=== PATIENT | female | born 1965 | race Caucasian/White ===

== ENCOUNTER → 2017-03-07 13:51 | Outpatient (CLI) | payer MEDICARE, MEDICAID, SELFPAY | PROVIDERS: Family Provider Family Medicine; PCP Family Medicine; Visit Provider Internal Medicine Critical Care Medicine | DX: G47.10 Hypersomnia, unspecified (principal) | CPT/HCPCS: 95806 ==

== ENCOUNTER 2017-03-17 11:20 | Day surgery (SDC) | payer MEDICARE, MEDICAID, SELFPAY ==
--- NOTE | 2017-03-17 | IMM_PTH ---
PATIENT: RAMON LESLIE LOC: EN U#:[id number] AGE/SX: 52/F ROOM: RE03/17/[address]: Dr. Rudi Jaquez MD : 1965 BED: DIS: 03/17/2017 SPEC #: [id number] RECD: 03/19/17 10:16 STATUS: MICHELLE REQ #: [id number] KARLA: 03/17/17 00:[address]: Rudi Jaquez DEPT: IMMUNOHISTOCHEMISTRY RECD BY: Belem Beasley ENTERED: 03/19/17 10:17 SP TYPE: IMMUNO OTHR DR: Dr. Remi Vreas MD Tissues: Stomach, NOS Procedures: H Pylori (initial) PHYSICIAN & INSTITUTION [place] [id number] SPECIMEN INFORMATION: Tissue Source: Antral biopsy Clinical Info: Epigastric pain Specimen Number: [id number] CPT code: 89856 METHODOLOGY: Deparaffinized sections of prefer/formalin-fixed tissue or PAP/DQ stained slides are incubated with monoclonal/polyclonal antibodies/oligonucleotide probes. Localization is made via biotin free immunoperoxidase method. Appropriate controls are performed and reacted as expected. Results on target cell population are indicated in the following table: RESULTS: ANTIBODY / CLONE RESULT H Pylori (polyclonal) negative These tests were developed and their performance characteristics determined by [facility]. They may not have been cleared or approved by the U.S. Food and Drug Administration. The FDA has determined that such clearance or approval is not necessary. INTERPRETATION: Antral biopsy: Negative for Helicobacter pylori organisms. LACY:lachelle 03/19/17
--- NOTE | 2017-03-17 | EGD_PTH ---
PATIENT: RAMON LESLIE LOC: [place] U#:[id number] AGE/SX: 52/F ROOM: RE03/17/[address]: Dr. Rudi Jaquez MD : 1965 BED: DIS: 03/17/2017 SPEC #: [id number] RECD: 03/17/17 15:18 STATUS: MICHELLE YOLIS #: [id number] KARLA: 03/17/17 00:[address]: Rudi Jaquez DEPT: SURGICAL PATHOLOGY RECD BY: Virgilio Villa ENTERED: 03/18/17 09:37 SP TYPE: EGD BIOPSY EUGENIE DR: Dr. Remi Veras MD Tissues: Gastric mucous membrane Procedures: Surgery Specimen Level IV Comments: @ Specimen number changed from [id number] to [id number] @ on 03/18/17 at 1404 by NENITA. HEADER OPERATION: EGD PRE-OP DIAGNOSIS: Epigastric pain TISSUE SUBMITTED: Antral biopsy MICROSCOPIC DIAGNOSIS Antral biopsy: Mild gastritis. LACY:lachelle 03/19/17 COMMENT The results of immunohistochemistry for Helicobacter pylori will be reported separately ([id number]). MICROSCOPIC DESCRIPTION Slides are reviewed. The specimen shows fragments of gastric mucosa with chronic inflammatory cell infiltrates in the lamina propria consisting of lymphocytes and plasma cells, consistent with mild chronic gastritis. GROSS DESCRIPTION Received in fixative is one container labeled with the patient's name and designated antral biopsy. The specimen consists of one irregular fragment of light newton soft tissue that measures 0.3 x 0.3 x 0.1 cm. The specimen is totally submitted in one cassette. / LACY:lachelle 03/18/17 TC:3 CPT: 69017
--- NOTE | 2017-03-17 07:38 | HP.PCM_ITS ---
History and Physical Date of Admission: 03/17/17 HISTORY AND PHYSICAL ? Stefanie Noriega 1965 ? REFERRING PHYSICIAN: ~Remi Sherman MD ? CHIEF COMPLAINT: ~~Consult (Consult RUQ incision hernia) ? HPI: The patient is a 52 year old female referred for a questionable recurrent upper abdominal incisional hernia and a known history of peptic ulcer disease.~~ Stefanie notes no current colon complaints. ? The patient ~notes the following upper complaints: ~~Stefanie notes abdominal pain in the upper abdomen which occurs soon after eating foods. ~She also notes that if she misses her Prilosec. ~She will get very severe upper abdominal pain. ~I performed upper and lower endoscopy in 2013 on 2 occasions. ~At both times. ~ The patient was found to have duodenal and gastric ulcerations. ~She was started on proton pump inhibitors and advised to decrease tobacco use. ~ Unfortunately, the patient is still smoking. ? The patient also has a history of multiple surgical procedures. ~She has Jose Manuel- Danlos syndrome. ~I performed an urgent incisional hernia repair for an upper midline incisional hernia with transverse colon located within the hernia in March 11, 2013 ~with an 11 x 14 mesh repair ~- I believe a ventrio~mesh. . ~The patient is concerned that she has had recurrence over the superior aspect of the repair site in the right upper quadrant area. ~Pain has been persistent in that area for the past year. ~She was initially evaluated for possible biliary colic. ~She underwent a gallbladder ultrasound which demonstrated no gallbladder abnormalities. ~She has a known history of many liver cysts. ~These appear stable between ultrasound and CAT scan. ? Stefanie has ~undergone prior endoscopy. ~These were performed 2 times in 2013 ? The patient is being seen by me today at the request of Dr. Remi Veras MD~ for my opinion and advice regarding upper abdominal pain and possible recurrent incisional hernia. ? ? PAST?MEDICAL?HISTORY PAST MEDICAL HISTORY Diagnosis Date ? Angina at rest (HCC) ? ? Anginal pain (HCC) 02/15/2013 ? Depression ? ? Jose Manuel-Danlos syndrome ? ? HTN (hypertension) ? ? Hyperlipidemia ? ? Migraine ? ? PAD (peripheral artery disease) (HCC) ? ? ? PAST?SURGICAL?HISTORY PAST SURGICAL HISTORY Procedure Laterality Date ? SECTION HX ? 2 ? COLONOSCOP W/ OR W/O [facility] SPEC ? 5/13/14 ? normal colonoscopy - 10 year follow up ? EGD W/O [facility] SPECIMEN W/BX ? 04/23/13 ? duodenal and gastric ulcers ? EGD W/O [facility] SPECIMEN W/BX ? 06/22/13 ? duodenal and gastric ulcers ? PAST SURGICAL HISTORY OF ? ? ? 13 Hernia repairs ? PAST SURGICAL HISTORY OF Right 2009 ? ORIF right foot ? PAST SURGICAL HISTORY OF Right 02/28/2016 ? right SHAREE revision ? AL ANESTH,TOTAL HIP ARTHROPLASTY ? 01/05/2011 ? right ? REPAIR RECURR INCIS HERNIA,BOBBI ? 03/11/13 ? incarcerated transverse colon - Ventralex ST 11X14 ? TARSAL TUNNEL RELEASE ? ? ? right ankle ? ? CURRENT?MEDICATIONS ? Current Outpatient Prescriptions: metoprolol succinate ER (TOPROL XL) 25 mg 24 hr tablet Take 1 tablet by mouth once daily. clonazePAM (KLONOPIN) 0.5 mg tablet ? PARoxetine (PAXIL) 40 mg tablet Take 40 mg by mouth once daily. atorvastatin (LIPITOR) 40 mg tablet Take 1 tablet by mouth once daily. VENTOLIN HFA 90 mcg/actuation inhaler ? lisinopril-hydrochlorothiazide (PRINZIDE,ZESTORETIC) 10-12.5 mg per tablet ? omeprazole 20 mg capsule Take 2 capsules by mouth once daily. cyclobenzaprine (FLEXERIL) 10 mg tablet Take 10 mg by mouth three times daily as needed. diltiazem CD (CARDIZEM CD) 120 mg 24 hr capsule Take 1 capsule by mouth once daily. amitriptyline 100 mg tablet Take 100 mg by mouth daily at bedtime. enteric contrast (radiology procedure) Take 1 Each by mouth one time only for [address] ABD/PEL WO Routine order Administer, As Directed One Time Only, via Oral, Rectal, both Oral and Rectal, Enteric Tube, Stoma or Indwelling Catheter, Enteric Contrast as designated per enteric contrast guidelines HYDROcodone-acetaminophen (NORCO) 5-325 mg per tablet Take 1-2 tablets by mouth every 4 hours as needed for Pain. (Patient not taking : Reported on 08/29/2016) docusate sodium (COLACE) 100 mg capsule Take 1 capsule by mouth twice daily. ascorbic acid, vitamin C, (VITAMIN C) 500 mg tablet Take 1 tablet by mouth twice daily with meals. FLUoxetine HCl (PROZAC) 40 mg capsule ? ? No current facility-administered medications for this visit. ? ALLERGIES: Stefanie-Phenal; Gabapentin; Phenobarbital ? PERSONAL HISTORY: SOCIAL?HISTORY Social History ~~Marital status: ~~~~~~~~~~~Spouse name: ~~~~~~~~~~~~~~~~~~ ~~Years of education: ~~~~~~~~~~~~~~~~Number of children: ~~~~~~~~~~ ? Social History Main Topics ~~Smoking status: Current Every Day Smoker ~~~~~~~~~~~~~~~~~~~~~~~~~~~~~~~~~~~~~ ~~~~~~~~ ~~~~~Packs/day: 0.50 ~~~~~Years: 35.00 ~~ ~~~~~Types: Cigarettes ~~Smokeless status: Never Used ~~~~~~~~~~~~~~~~~~~ ~~Comment: 1o cigartettes daily ~~Alcohol use: Yes ~~~~~~~~ ~~~~~Comment: rare ~~Drug use: No ~~~~~~~~~ ? FAMILY HISTORY: FAMILY?HISTORY FAMILY HISTORY Problem Relation Age of Onset ? Stroke Mother ? ? Diabetes Father ? ? REVIEW OF SYMPTOMS: ~~The review of systems data was entered by the nurse and reviewed by me ? REVIEW OF SYSTEMS: ?General:???The patient NOTES?fatigue, denies?weight loss, denies?weight gain, denies?feeling hot, and denies?feelings of cold. ?Eyes: ?The patient denies?glaucoma, denies?eye injury/surgery, wears? glasses or contacts. ?Ear/Nose/Throat: ?The patient denies?allergies, denies?hayfever, denies? ear infections, and denies?bloody noses. ?Cardiovascular: ?The patient NOTES?chest pain, denies?heart disease, NOTES? high blood pressure,denies?cardiac stent, denies?prior heart attack, denies? irregular heart beat, NOTES?high cholesterol, ?NOTES?poor circulation, denies? heart failure, NOTES?cardiac issues, NOTES?claudication, denies?cold feet, denies?peripheral arterial stent. ?Respiratory: ?The patient denies?tuberculosis, denies?pneumonia, NOTES? frequent cough, denies?pulmonary embolism, NOTES?shortness of breath, and denies ?coughing up blood, NOTES other lung problems. ?Gastrointestinal: ?The patient denies?difficulty swallowing, denies?acid reflux, NOTES?ulcers, NOTES?vomiting, denies?jaundice/hepatitis, denies? gallbladder problems, denies?black or tarry stools, denies?hemorrhoids, denies? bleeding from rectum, denies?diverticulitis, denies?constipation, NOTES?diarrhea , denies?loss of stool control, and NOTES?hernias. ?Kidney/Bladder: ?The patient denies?kidney stones, denies?urine infections , and denies?bloody urine, NOTES cystolic kidneys. ?Skin: ?The patient denies?a history of skin cancer, denies?bleeding/ changing moles, and denies?a history of skin rash. ?Neurologic: ?The patient denies?a history of epilepsy/convulsions, NOTES? headaches, denies?head/spinal injuries, and denies?stroke/TIA. ?Psychiatric: ?The patient denies?psychiatric medications, NOTES?depression , and denies?voices, denies?substance abuse. ?Endocrine: ?The patient denies?thyroid disorders, denies?diabetes, and denies?hormonal problems. ?Hematologic: ?The patient NOTES?a history of bruising, NOTES?bleeding, and denies?anemia, denies?blood clots. ?Infections: ?The patient NOTES?a history of measles and mumps, denies? rheumatic fever, and denies?sexually transmitted diseases. ?Musculoskeletal: ?The patient NOTES?back pain/injury, NOTES?back problems, NOTES?sciatica, NOTES?knee/foot trouble, NOTES?arthritis, or denies?gout. ? When was patient's last Mammogram screening? N/A ?? ?Last Colonoscopy: ?06/2013? ?? PHYSICAL EXAMINATION: ? General: ~The patient is 52 year old female, well nourished, well hydrated in no acute distress. ~The patient is oriented to time, place, and person. ? VITALS: There were no vitals taken for this visit.~There is no height or weight on file to calculate BMI.~ ? HEENT: ~Normal cephalic, ataumatic, pupils are equally round, sclera are anicteric, mucous membranes are moist, oropharynx is clear. ~Neck has no masses , asymmetry or lymphadenopathy. ~Thyroid is unremarkable. ? Respiratory: ~Distant to~auscultation with few wheezes. ~Normal respiratory excursion and pattern. ? Cardiac: ~Examination is regular rate and rhythm. ? Abdominal exam: ~Soft, tender in the epigastrium and right upper quadrant area. ~There is suggestion of an asymmetry in the right upper quadrant, ~with no palpable masses. ~No hepatosplenomegaly. ~No~obviously~palpable hernias, but asymmetry in the right upper quadrant suggested further postsurgical changes, or a possible recurrent hernia. ? Rectal exam: exam deferred ? Extremities: ~no clubbing, cyanosis or edema. ~No adenopathy. ? Other: ? LABORATORY VALUES: As Noted ? RADIOLOGIC STUDIES: ~As Noted ? Assessment ~ IMPRESSION: Questionable recurrent incisional hernia, history of peptic ulcer disease, epigastric symptoms, clinically worsening COPD, Jose Manuel-Danlos syndrome ? PLAN: ~I plan to perform upper~endoscopy. ~~We discussed the risks and benefits of the planned endoscopy. ~I have informed the patient that complications can occur including failure to complete the endoscopy and perforation. ~The patient had the opportunity to ask questions concerning the planned endoscopy. ~My staff has also explained the procedure to the patient in understandable terms and has given the patient printed material concerning the procedure. ~The patient freely consents to surgery. ? ? I plan to obtain a CT scan of the abdomen and pelvis for to assess for recurrent herniation. ? The patient is followed by Dr. Wooten-pulmonary. ~The last office note recommended pulmonary function tests area did the patient has not had these completed. ~I will have my security sme try to arrange these pulmonary function tests. ? ? Diagnoses: (R10.13) Epigastric pain ~(primary encounter diagnosis) (K43.2) Incisional hernia, without obstruction or gangrene ? A letter was sent to Dr. Remi Veras MD~indicating the above finding for this patient. ?? Return to Clinic: The patient is instructed to follow-up with me after the testing has been completed. ? Rudi Jaquez MD
[2017-03-17 12:14] VITALS: BP 116/65; PULSE 65; RESP 18; TEMP 37.1; O2SAT 97; BMI 29.9
[2017-03-17 14:05] VITALS: BP 116/65; BP 99/39; PULSE 72; RESP 16; TEMP 36.4; O2SAT 97
--- NOTE | 2017-03-17 14:07 | PCM.OPRPT ---
Report of Operation Date of Procedure: 03/17/17 Pre-Operative Diagnosis: EPIGASTRIC PAIN Surgery/Procedure Performed:: GASTRIC ULCERS, GASTRITIS Description of Surgical Findings:: EGD WITH BIOPSY hat brim curler: None Type of Anesthesia:: MAC Anesthesiologist: Juan Carlos Espinal ASA3 Specimen's removed: GASTRIC FOR H PYLORI AND PATH Description of Procedure: The patient was brought to the endoscopy suite. Sign in was performed verifying patient, site, planned procedure, critical nursing information, the patient was monitored with cardiac, pulse oximetric, and blood pressure monitoring devices. Monitored anesthetic care was provided for sedation. Following IV sedation and after the oropharynx was sprayed with Cetacaine spray, a video gastroscope was inserted in the oropharynx and advanced down the esophagus without difficulty. The scope was advanced through the stomach, through the pylorus through the duodenum to the proximal jejunum. the duodenum and jejunum appeared unremarkable. As the scope withdrawn. There were 2 ulcers present in the prepyloric area. Both had white bases. There were no signs of recent bleeding. There was also some mild gastritis in the more proximal antrum. Biopsies were obtained for H. pylori and pathology. The esophagus was unremarkable. The patient tolerated the procedure well and was brought to recovery in stable condition
[2017-03-17 14:10] VITALS: BP 116/65; BP 94/53; PULSE 67; RESP 16; O2SAT 96
[2017-03-17 14:15] VITALS: BP 101/59; BP 116/65; PULSE 70; RESP 16; O2SAT 94
[2017-03-17 14:26] VITALS: BP 109/47; BP 116/65; PULSE 68; RESP 16; TEMP 36.5; O2SAT 92
[2017-03-17 14:52] VITALS: BP 116/65
== END 2017-03-17 14:53 | disposition home or self-care (01) ==
LOC: EN 11:20 → ACINP 11:22 → AC 13:11
PROVIDERS: Family Provider Family Medicine; PCP Family Medicine; Visit Provider Surgery
PROC: 0DJ08ZZ Inspection of Upper Intestinal Tract, Via Natural or Artificial Opening Endoscopic (ICD-10-PCS; CPT 43235; principal; 2017-03-17 13:25)
DX: K29.70 Gastritis, unspecified, without bleeding (principal); K25.9 Gastric ulcer, unspecified as acute or chronic, without hemorrhage or perforation; K43.2 Incisional hernia without obstruction or gangrene; Q79.6 Ehlers-Danlos syndromes; I10 Essential (primary) hypertension; J44.9 Chronic obstructive pulmonary disease, unspecified; K21.9 Gastro-esophageal reflux disease without esophagitis; F17.200 Nicotine dependence, unspecified, uncomplicated; Z87.11 Personal history of peptic ulcer disease
CPT/HCPCS: 43239; 88305; 88342; J7120

== ENCOUNTER → 2017-04-25 22:44 | Outpatient (CLI) | payer MEDICARE, MEDICAID, SELFPAY | PROVIDERS: Family Provider Family Medicine; PCP Family Medicine; Visit Provider Nurse Practitioner Acute Care | DX: G47.33 Obstructive sleep apnea (adult) (pediatric) (principal) | CPT/HCPCS: 95811 ==

== ENCOUNTER → 2017-04-29 07:46 | Outpatient (CLI) | payer MEDICARE, MEDICAID, SELFPAY ==
--- NOTE | 2017-04-29 09:50 | NEURO ---
NCS and/or EMG Patient Report Ordering Doctor: Darryl Muhammad DATE OF SERVICE: 04/29/17 This is a bilateral lower extremity nerve conduction study and a right lower extremity EMG performed on this 52-year-old female with a history of COPD on home oxygen as well as Jose Manuel-Danlos syndrome, right hip replacement and right ankle reconstructive surgery. For the past 5 years she has had intermittent pins and needles in her right leg happening sporadically without trigger regardless of position. She says her left leg is normal. On examination she has mild proprioceptive loss in her bilateral lower extremities at the toes. She also has pain with flexion at the right hip but this does not duplicate the above described pain. Bilateral lower extremity sensory and motor nerve conduction studies along with F waves and H reflexes are performed. The sural sensory distal latencies and amplitudes are normal. The common peroneal distal latencies, amplitudes and conduction velocities are normal. The tibial motor distal latencies amplitudes and conduction velocities are normal. As noted however that there is asymmetry with respect to amplitudes being somewhat lower in the right tibial motor nerve and the right common peroneal motor nerves. The tibial and common peroneal F waves are mildly prolonged compared to the F waves on the left. H reflex responses are intact. Right lower extremity needle electromyography was performed. Muscles evaluated included the extensor digitorum brevis, abductor hallucis, anterior tibialis, medial gastrocnemius, vastus lateralis, and vastus medialis muscles. All muscles demonstrated normal insertional activity with absence of pathologic spontaneous activity. Motor unit potential recruitment pattern and amplitude was normal with the exception of the vastus lateralis and vastus medialis which did demonstrate large motor units. Impression this is an abnormal electrophysiologic study of the lower extremities consistent with mild chronic L4 radiculopathy, the patient likely has a superimposed mild neuropathy and pain contributed to by her chronic joint issues as well.
== END ==
PROVIDERS: Family Provider Family Medicine; PCP Family Medicine; Visit Provider Psychiatry & Neurology Neurology
DX: G62.9 Polyneuropathy, unspecified (principal); M54.16 Radiculopathy, lumbar region; R20.0 Anesthesia of skin; R20.2 Paresthesia of skin
CPT/HCPCS: 95886; 95910

== ENCOUNTER → 2017-09-02 11:47 | Outpatient (CLI) | payer MEDICARE, MEDICAID, SELFPAY ==
--- NOTE | 2017-09-03 15:01 | PFTCOMP ---
COMPLETE PULMONARY FUNCTION TEST INTERPRETATION Brief HPI: Patient is a 52 year old female, currently under the care of Noelle Mcdonald, who presents to [facility] for complete pulmonary function tests secondary to diagnosis of COPD. Respiratory therapist reports good effort and reproducible results. Interpretation: Forced expiration spirometry shows a moderately-severe large airways obstructive ventilatory defect with an FEV1 of 55% predicted. There is no significant bronchodilator response by ATS criteria. Spirograms are of good quality and plateau slowly, indicating slowly emptying areas of the lungs. The respiratory flow volume loop shows decreased expiratory flow rates at all lung volumes consistent with airway obstruction. Lung volumes by body plethysmography show a normal total lung capacity at 4.43 L, 98% predicted. FRC and RV are elevated out of proportion. Lung volume measurements are consistent with air-trapping. Diffusion capacity by carbon monoxide is decreased at 34% predicted. The airway resistance is normal. Compared to previous pulmonary function tests from 02/25/17, there has been a significant reduction in DLCO. Impression: Irreversible moderately severe large airways obstructive ventilatory defect with a symmetric reduction diffusing capacity consistent with patient's diagnosis of COPD. There has been worsening compared to previous study.
--- NOTE | 2017-09-03 15:05 | PFTCOMP_ITS ---
COMPLETE PULMONARY FUNCTION TEST INTERPRETATION Brief HPI: Patient is a 52 year old female, currently under the care of Noelle Mcdonald, who presents to [facility] for complete pulmonary function tests secondary to diagnosis of COPD. Respiratory therapist reports good effort and reproducible results. Interpretation: Forced expiration spirometry shows a moderately-severe large airways obstructive ventilatory defect with an FEV1 of 55% predicted. There is no significant bronchodilator response by ATS criteria. Spirograms are of good quality and plateau slowly, indicating slowly emptying areas of the lungs. The respiratory flow volume loop shows decreased expiratory flow rates at all lung volumes consistent with airway obstruction. Lung volumes by body plethysmography show a normal total lung capacity at 4.43 L , 98% predicted. FRC and RV are elevated out of proportion. Lung volume measurements are consistent with air-trapping. Diffusion capacity by carbon monoxide is decreased at 34% predicted. The airway resistance is normal. Compared to previous pulmonary function tests from 02/25/17, there has been a significant reduction in DLCO. Impression: Irreversible moderately severe large airways obstructive ventilatory defect with a symmetric reduction diffusing capacity consistent with patient's diagnosis of COPD. There has been worsening compared to previous study.
== END ==
PROVIDERS: Family Provider Family Medicine; PCP Family Medicine; Visit Provider Nurse Practitioner Acute Care
DX: J44.9 Chronic obstructive pulmonary disease, unspecified (principal)
CPT/HCPCS: 94060; 94726; 94729

== ENCOUNTER → 2017-09-03 11:06 | Outpatient (CLI) | payer MEDICARE, MEDICAID, SELFPAY ==
[2017-09-03 11:30] VITALS: PULSE 63; PULSE 65; PULSE 74; PULSE 79; PULSE 80; PULSE 83; O2SAT 93; O2SAT 94; O2SAT 95; O2SAT 96
--- NOTE | 2017-09-04 06:13 | WT_ITS ---
PSN 6 Minute Walk Test - 6 Minute Walk Test 6 Minute Walk Test: 6 Minute Walk Test PSN:6-Minute Walk Test Start: 09/03/17 11: 30 Freq: Status: Active Protocol: RESP.6MINW Document 09/03/17 11:30 [place] (Rec: 09/03/17 11:32 FABIENON [id number]) 6 Minute Walk Test Date Performed 09/03/17 Time Performed 11:15 Height 5 ft 2 in Weight: 74.843 kg Weight in Pounds 165.[address]: Bobby Wooten Assistive device used: Cane Pre-test Oxygen Delivery Method Room Air Pulse Ox (%) 95 Pulse Rate (60-100 beats/min) 63 Dyspnea Marimar Scale (0-10) 0 Exertion Marimar Scale (6-20) 6 1st minute Oxygen Delivery Method Room Air Pulse Ox (%) 93 Pulse Rate (60-100 beats/min) 74 2nd minute Oxygen Delivery Method Room Air Pulse Ox (%) 93 Pulse Rate (60-100 beats/min) 79 3rd minute Oxygen Delivery Method Room Air Pulse Ox (%) 93 Pulse Rate (60-100 beats/min) 79 4th minute Oxygen Delivery Method Room Air Pulse Ox (%) 95 Pulse Rate (60-100 beats/min) 80 5th minute Oxygen Delivery Method Room Air Pulse Ox (%) 95 Pulse Rate (60-100 beats/min) 80 6th minute Oxygen Delivery Method Room Air Pulse Ox (%) 94 Pulse Rate (60-100 beats/min) 83 Dyspnea Marimar Scale (0-10) 4 Exertion Marimar Scale (6-20) 14 Post-test Oxygen Delivery Method Room Air Pulse Ox (%) 96 Pulse Rate (60-100 beats/min) 65 Full Laps Walked 12 Partial Lap, Number of Tiles Walked 15 Total Distance Walked (ft) 723 - Interpretation Interpretation: Patient was able to ambulate 723 feet over the course of 6 minutes on room air with the assistance of a cane and experienced no significant tachycardia or desaturation. These findings are consistent with a musculoskeletal limitation exercise tolerance. - Recommendations Recommendations: No supplemental oxygen is indicated with exertion according to this testing.
== END ==
PROVIDERS: Family Provider Family Medicine; PCP Family Medicine; Visit Provider Nurse Practitioner Acute Care
DX: J44.9 Chronic obstructive pulmonary disease, unspecified (principal)
CPT/HCPCS: 94618

== ENCOUNTER 2018-03-11 11:06 | Emergency (ER) | payer MEDICARE, MEDICAID, SELFPAY ==
[2018-03-11 11:06] VITALS: BMI 29.9
[2018-03-11 11:07] VITALS: BP 120/71; PULSE 65; RESP 16; TEMP 36.3; O2SAT 96; BMI 32.3
--- NOTE | 2018-03-11 11:25 | RAD_ITS ---
STUDY: X-RAY - THORACIC SPINE REASON FOR EXAM: Female, 53 years old. Pain TECHNIQUE: 3 view(s) of the thoracic spine were obtained. COMPARISON: None. FINDINGS: Normal kyphosis of the thoracic spine. There is no substantial scoliosis. Normal thoracic vertebrae and endplates. Normal disc space heights. The soft tissue structures are unremarkable. RAD/Thoracic Spine 3 Views IMPRESSION: Normal x-ray examination of the thoracic spine. Electronically Signed: Mann Olivares MD at 12:21 EST Tel , Service support ,
--- NOTE | 2018-03-11 11:25 | RAD_ITS ---
STUDY: X-RAY - CERVICAL SPINE REASON FOR EXAM: Female, 53 years old. Pain TECHNIQUE: 3 view(s) of the cervical spine were obtained. COMPARISON: None FINDINGS: Normal anterior atlantoaxial articulation. Normal odontoid process. Normal cervical lordosis. Normal vertebral bodies and endplates. Normal disc space heights. Normal visualized intervertebral neuroforamina. The soft tissue structures are unremarkable. RAD/Cerv Spine 2 or 3 Views IMPRESSION: Normal x-ray examination of the visualized cervical spine. Electronically Signed: Mann Olivares MD at 12:16 EST Tel , Service support ,
[2018-03-11] MEDS: HYDROcodone Bitartrate/Apap 5/325 Tablet PO (11:43)
--- NOTE | 2018-03-11 12:33 | ED.VISSUMM ---
- ER Visit Summary Date of Service: 03/11/18 Chief Complaint: Back pain History of Present Illness: The patient is a 53 F with back pain that started today. Patient was moving and extend her back. She felt a pop in her lower neck and upper back. She says that she has pain to the area that radiates down her entire back and down her right leg. No other associated symptoms. She has had pain in the past like this. History of Ehler Danlos syndrome. No history of back surgery. No fevers. No weakness or numbness. Physical Examination: Afebrile and vital signs unremarkable. Alert and oriented. No acute distress. HEENT exam unremarkable. Neck is tender in the lower C-spine and upper T-spine at the midline. Upper extremities atraumatic. Strength and sensation normal. Skin appears normal. Lower extremities unremarkable. Test Results: X-rays of the C-spine and T-spine were unremarkable. Emergency Department Course and Treatment: Patient was treated with [place] and Flexeril. She has been taking anti-inflammatories at home. She will continue anti-inflammatories. She was given a short course of [place] as well as Flexeril. Follow-up with primary care for recheck. Treatment Plan: As above Disposition: Discharge Impression: 1. Cervical strain This note was generated with [employer] dictation software. It may contain incorrect words, spelling, and punctuation that were not noted in review of the chart prior to signing ED Disposition - Plan for ED Patient: Chief Complaint: Back Referrals: Remi Veras MD [Primary Care Provider] -
--- NOTE | 2018-03-11 12:36 | ED.DCSUM_ITS ---
- ER Visit Summary Date of Service: 03/11/18 Chief Complaint: Back pain History of Present Illness: The patient is a 53 F with back pain that started today. Patient was moving and extend her back. She felt a pop in her lower neck and upper back. She says that she has pain to the area that radiates down her entire back and down her right leg. No other associated symptoms. She has had pain in the past like this. History of Ehler Danlos syndrome. No history of back surgery. No fevers. No weakness or numbness. Physical Examination: Afebrile and vital signs unremarkable. Alert and oriented. No acute distress. HEENT exam unremarkable. Neck is tender in the lower C-spine and upper T-spine at the midline. Upper extremities atraumatic. Strength and sensation normal. Skin appears normal. Lower extremities unremarkable. Test Results: X-rays of the C-spine and T-spine were unremarkable. Emergency Department Course and Treatment: Patient was treated with [place] and Flexeril. She has been taking anti-inflammatories at home. She will continue anti-inflammatories. She was given a short course of [place] as well as Flexeril. Follow-up with primary care for recheck. Treatment Plan: As above Disposition: Discharge Impression: 1. Cervical strain This note was generated with [employer] dictation software. It may contain incorrect words, spelling, and punctuation that were not noted in review of the chart prior to signing ED Disposition - Plan for ED Patient: Chief Complaint: Back Referrals: Remi Veras MD [Primary Care Provider] -
--- NOTE | 2018-03-11 12:36 | ED.DEP ---
ED Disposition - Plan for ED Patient: Chief Complaint: Back Instructions: ED Neck Back Pain General Prescriptions: Hydrocodone Bitart/Apap 5-325 [[place] 5MG-325MG] 1 tab PO Q6H PRN PRN 2 Days #8 tab PRN Reason: Pain Cyclobenzaprine [Flexeril] 10 mg PO TID PRN PRN #10 tab PRN Reason: Muscle Spasm Referrals: Remi Veras MD [Primary Care Provider] -
[2018-03-11 13:02] VITALS: BP 142/59; PULSE 71; RESP 16; O2SAT 96
== END 2018-03-11 12:45 | disposition home or self-care (01) ==
LOC: ED 12:30
PROVIDERS: Emergency Provider Emergency Medicine; Family Provider Family Medicine; PCP Family Medicine
DX: S16.1XXA Strain of muscle, fascia and tendon at neck level, initial encounter (principal); X50.9XXA Other and unspecified overexertion or strenuous movements or postures, initial encounter; Y93.9 Activity, unspecified; Y92.89 Other specified places as the place of occurrence of the external cause; Y99.9 Unspecified external cause status; Q79.6 Ehlers-Danlos syndromes; Z72.0 Tobacco use
CPT/HCPCS: 72040; 72072; 99283

== ENCOUNTER → 2018-06-17 07:38 | Outpatient (CLI) | payer MEDICARE, MEDICAID, SELFPAY ==
[2018-04-02 09:11] VITALS: BMI 32.3
--- NOTE | 2018-06-18 08:39 | PFT ---
INTRODUCTION: The patient is a 53-year-old female that presents for pulmonary function studies secondary to a diagnosis of COPD. Respiratory therapy reports good patient effort. Bronchodilators were used during testing. INTERPRETATION: Forced expiration spirometry demonstrates the presence of a moderately severe large airways obstructive ventilatory defect. There was no significant response to aerosolized bronchodilators. Spirograms are of good quality and do not plateau indicating slow emptying of the lungs. Body plethysmography was performed and reveals an elevated RV to 136% of predicted, indicative of underlying air trapping. Diffusing capacity by single breath CO is reduced at 45% of predicted. When compared to previous pulmonary function studies dated August 2017, there has been significant improvement in the patient's diffusing capacity. IMPRESSION: Irreversible moderately severe large airways obstructive ventilatory defect with associated air trapping and symmetric reduction in diffusing capacity.
== END ==
PROVIDERS: Family Provider Family Medicine; PCP Family Medicine; Referring Provider Nurse Practitioner Acute Care; Visit Provider Nurse Practitioner Acute Care
DX: J44.9 Chronic obstructive pulmonary disease, unspecified (principal)
CPT/HCPCS: 94060; 94726; 94729

== ENCOUNTER → 2018-06-23 10:26 | Outpatient (CLI) | payer MEDICARE, MEDICAID, SELFPAY ==
[2018-04-02 09:11] VITALS: BMI 32.3
[2018-06-23 10:56] VITALS: PULSE 76; PULSE 81; PULSE 83; PULSE 86; PULSE 87; PULSE 88; O2SAT 91; O2SAT 92; O2SAT 93; O2SAT 94; O2SAT 95
--- NOTE | 2018-06-23 11:37 | PCM.PSN.6M ---
PSN 6 Minute Walk Test - 6 Minute Walk Test 6 Minute Walk Test: 6 Minute Walk Test PSN:6-Minute Walk Test Start: 06/23/18 10:56 Freq: Status: Active Protocol: RESP.6MINW Document 06/23/18 10:56 SMB (Rec: 06/23/18 10:59 SMB [id number]) 6 Minute Walk Test Date Performed 06/23/18 Time Performed 10:43 Height 5 ft 2 in Weight: 79.379 kg Weight in Pounds 175.[address]: Noelle Mcdonald Assistive device used: Cane Pre-test Oxygen Delivery Method Room Air Pulse Ox (%) 94 Pulse Rate (60-100 beats/min) 76 Dyspnea [place] Scale (0-10) 3 Exertion [place] Scale (6-20) 11 1st minute Oxygen Delivery Method Room Air Pulse Ox (%) 91 Pulse Rate (60-100 beats/min) 83 2nd minute Oxygen Delivery Method Room Air Pulse Ox (%) 91 Pulse Rate (60-100 beats/min) 87 3rd minute Oxygen Delivery Method Room Air Pulse Ox (%) 93 Pulse Rate (60-100 beats/min) 86 4th minute Oxygen Delivery Method Room Air Pulse Ox (%) 92 Pulse Rate (60-100 beats/min) 88 5th minute Oxygen Delivery Method Room Air Pulse Ox (%) 93 Pulse Rate (60-100 beats/min) 88 6th minute Oxygen Delivery Method Room Air Pulse Ox (%) 93 Pulse Rate (60-100 beats/min) 87 Reported Symptoms Increased Work of Breathing Post-test Oxygen Delivery Method Room Air Pulse Ox (%) 95 Pulse Rate (60-100 beats/min) 81 Dyspnea [place] Scale (0-10) 4 Exertion [place] Scale (6-20) 12 Reported Symptoms Increased Work of Breathing Full Laps Walked 19 Partial Lap, Number of Tiles Walked 21 Total Distance Walked (ft) 1142 - Interpretation Interpretation: The patient was able to ambulate 1142 feet over the course of 6 minutes on room air with the assistance of a cane and no breaks. The patient did experience significant desaturation to as low as 91% and no significant tachycardia. These findings are consistent with a respiratory limitation exercise tolerance. - Recommendations Recommendations: No supplemental oxygen is indicated at this time, but will need to be followed closely given level of desaturation.
== END ==
PROVIDERS: Family Provider Family Medicine; PCP Family Medicine; Referring Provider Nurse Practitioner Acute Care; Visit Provider Nurse Practitioner Acute Care
DX: J44.9 Chronic obstructive pulmonary disease, unspecified (principal); R06.02 Shortness of breath
CPT/HCPCS: 94618

== ENCOUNTER 2018-07-27 21:50 | Emergency (ER) | payer MEDICARE, MEDICAID, SELFPAY ==
[2018-07-08 10:44] VITALS: BMI 32.3
[2018-07-27 21:51] VITALS: BP 160/81; PULSE 82; RESP 15; TEMP 36.1; O2SAT 95; BMI 32.3
--- NOTE | 2018-07-27 22:55 | RAD_ITS ---
STUDY: X-RAY - RIGHT SHOULDER REASON FOR EXAM: Female, 53 years old. Right shoulder pain. TECHNIQUE: 4 view(s) of the shoulder. COMPARISON: None. FINDINGS: Normal glenohumeral articulation. Normal acromioclavicular joint. Normal acromion. There is demineralization of the humerus and visualized osseous structures. The soft tissue structures are unremarkable. Normal visualized pulmonary apex. RAD/Shoulder min 2 Views IMPRESSION: No evidence of acute osseous abnormality. Electronically Signed: Balwinder Moran DO at 23:09 EDT , Service support ,
--- NOTE | 2018-07-27 23:37 | ED.VIS.UPPEX ---
History of Present Illness Chief Complaint: Upper Extremity Injury Narrative: Patient presenting for evaluation secondary to shoulder pain. Patient reports that she woke up this morning and noted that she had a significant amount of right shoulder pain pain is sharp and moderate to severe worse with any sort of palpation or movement. Patient states that the pain somewhat radiates down her arm and up into her neck. She denies any injuries, although she states that she does fall out of bed frequently, and feels that potentially she may have fallen out of bed last night. She does report that she has a history of dislocating that shoulder in the past. She denies any numbness or weakness. Review of systems otherwise negative. Past Medical History - Allergies and Home Meds Allergies/Adverse Reactions: Allergies atropine sulfate [From ] Allergy (Verified 07/08/18 10:40) Hives hyoscyamine sulfate [From ] Allergy (Verified 07/08/18 10:40) Hives phenobarbital [From ] Allergy (Verified 07/08/18 10:40) Hives scopolamine hydrobromide [From ] Allergy (Verified 07/08/18 10:40) Hives gabapentin Adverse Reaction (Verified 07/08/18 10:40) Other I CANT TALK. MAKES ME FEEL LIKE RUBBER PHENABARBITOL Allergy (Uncoded 04/02/18 09:02) Other Primary Care Physician: Remi Veras MD [Primary Care Provider] - Surgical History: - - Has had 14 hernia surgeries on abdomen Smoking Status: Current some day smoker - Family History Maternal Family History: Reports: Unknown Review of Systems All systems negative except as indicated Musculoskeletal: Reports: - - Right shoulder pain Physical Exam Vital Signs/Narrative: Vital Signs Temp Pulse Resp BP Pulse Ox 07/27/18 21:51 97 F L 82 15 160/81 H 95 Inital Vital Signs reviewed: Yes Right Shoulder: - - Patient complains of diffuse pain of the right shoulder without any evidence of deformity warmth erythema or joint effusion. Limited range of motion secondary to pain. No crepitus with range of motion. Patient will not allow me to fully stress her rotator cuff muscles. Normal distal pulses normal distal sensation. General: Well nourished, Well developed Head: Normocephalic, Atraumatic Eyes: Perrl, EOMI Neck: Nontender, Full ROM Cardiovascular: Regular rate, Regular rhythm, No murmurs Respiratory: No distress, CTA bilaterally, Chest nontender Skin: Normal color, No rash Neurological: Alert, Oriented x3, Cranial nerves II-XII grossly intact, Normal Strength, Normal Sensation Psychological: Tearful Diagnostic/Tx/Re-eval - Medical Decision Making Patient presented secondary to shoulder pain. Patient was treated with Toradol [place] for treatment of her pain. X-ray was obtained which was found to be negative by my personal review as well as radiology. Patient likely has an element of a rotator cuff strain. Patient was placed on a course of Mobic, was recommended range of motion exercises and the patient was discharged. Disposition: Home ED Disposition - Plan for ED Patient: Disposition: Home or Assisted Living Diagnosis: Right shoulder pain Instructions: ED Sprain Shoulder Prescriptions: Meloxicam [Mobic] 15 mg PO DAILY #14 tab Referrals: Remi Veras MD [Primary Care Provider] - 1 Week if not improving
[2018-07-27] MEDS: Ketorolac 30 MG/ML Syringe IM (23:58)
[2018-07-27] MEDS: HYDROcodone Bitartrate/Apap 5/325 Tablet PO (23:58)
[2018-07-28 00:01] VITALS: BP 141/92; PULSE 75; RESP 15; O2SAT 97
== END 2018-07-28 00:37 | disposition home or self-care (01) ==
PROVIDERS: Emergency Provider Emergency Medicine; Family Provider Family Medicine; PCP Family Medicine
DX: M25.511 Pain in right shoulder (principal); F17.200 Nicotine dependence, unspecified, uncomplicated
CPT/HCPCS: 73030; 96372; 99284; A4216

== ENCOUNTER → 2018-10-20 12:36 | Outpatient (CLI) | payer MEDICARE, MEDICAID, SELFPAY ==
[2018-09-30 06:51] VITALS: BMI 32.0
--- NOTE | 2018-10-20 12:37 | CT_ITS ---
STUDY: LOW DOSE CT LUNG CANCER SCREENING REASON FOR EXAM: Female, 53 years old. Lung cancer. RADIATION DOSAGE (If Supplied By Facility): CTDIvol = ( 3.02 ) mGy, DLP = ( 90.63 ) mGycm TECHNIQUE: No contrast was administered. Low dose technique was utilized (average mAS-38 and kVp 120). 1.25 mm axial source images with a slice interval of 1.25-mm were reconstructed in lung windows. 2.5 mm axial source images with a slice interval of 2.5-mm were reconstructed in lung windows. 5.0 mm axial source images with a slice interval of 5.0-mm were reconstructed in soft tissue windows. Nodule measured using lung windows on PACS and/or independent workstation with automated measurement of minimum and maximum diameter. Nodule measurement reported as average diameter rounded to the nearest whole number. Growth is defined as an increase ins size of greater than 1.5 mm. COMPARISON: None. NODULES: There is hyperinflation both lungs suggesting COPD. Mild emphysematous changes are noted in the lung apices predominantly centrilobular type.. Subsegmental atelectases are noted in the lung bases. There is a calcified granuloma in the lingula. There is no demonstrated pleural abnormality. Normal heart and pericardium. Normal mediastinum. Normal hilar regions. Normal unenhanced pulmonary arteries. Normal aorta arch and descending thoracic aorta. Normal osseous structures. There is a hypoattenuation lesion in the right lobe of the liver measures 2.3 cm segment #7 most likely represent a cyst. Further evaluation by ultrasound or MRI liver would be helpful for definitive diagnosis. CT/Low Dose CT Lung Screening IMPRESSION: Lung-RADS category 2. Benign findings. There is a hypoattenuation lesion in the right lobe of the liver measures 2.3 cm segment #7 most likely represent a cyst. Further evaluation by ultrasound or MRI liver would be helpful for definitive diagnosis. Recommendation: Routine screening CT scan in one year. IMPORTANT NOTES FOR USE: ACR Lung-RADS Version 1.0 Assessment Categories Release Date: June 07, 2013 Category: Coded 0-4 bases on nodule(s) with highest degree of suspicion. Negative screen is defined as categories 1 and 2; a positive screen is defined as categories 3 and 4. Category 3 and 4A nodules that are unchanged on interval CT should be coded as category 2, and individuals returned to screening in 12 months. Category 4X: Category 3 or 4 nodules with additional imaging findings that increase the suspicion of lung cancer, such as spiculation, GGN that doubles in size in 1 year, enlarged lymph notes, etc. Category Modifiers: S (significant finding unrelated to lung cancer) and C (prior history of treated lung cancer) may be added to the 0-4 Lung-RADS Electronically Signed: Blas Wallace, at 7:42 EDT Tel , Service support ,
== END ==
PROVIDERS: Family Provider Family Medicine; PCP Family Medicine; Referring Provider Internal Medicine Critical Care Medicine; Visit Provider Internal Medicine Critical Care Medicine
DX: Z12.2 Encounter for screening for malignant neoplasm of respiratory organs (principal); C34.90 Malignant neoplasm of unspecified part of unspecified bronchus or lung; F17.210 Nicotine dependence, cigarettes, uncomplicated
CPT/HCPCS: G0297

== ENCOUNTER 2019-01-08 20:40 | Inpatient (IN) | payer MEDICARE, MEDICAID, SELFPAY ==
[2019-01-05 06:38] VITALS: BMI 32.9
[2019-01-08 20:41] VITALS: BP 102/59; PULSE 71; RESP 23; TEMP 36.6; O2SAT 95; BMI 31.4
[2019-01-08 20:45] VITALS: BP 96/57; PULSE 66; RESP 13; TEMP 36.7; O2SAT 93
--- NOTE | 2019-01-08 20:58 | EKG12_ITS ---
Test Reason : ALT LOC Blood Pressure : / mmHG Vent. Rate : 067 BPM Atrial Rate : 067 BPM P-R Int : 180 ms QRS Dur : 094 ms QT Int : 470 ms P-R-T Axes : 019 041 138 degrees QTc Int : 496 ms Normal sinus rhythm ST & T wave abnormality, consider anterolateral ischemia Prolonged QT Abnormal ECG Confirmed by JING SHANNON, JOSE FRANCISCO ([id number]), book editor CHRIS GONZALEZ ([id number]) on 01/11/2019 11:38:40 AM Referred By: Sukhjinder Singletary Confirmed By:JOSE FRANCISCO CH MD
--- NOTE | 2019-01-08 20:58 | CT_ITS ---
STUDY: CT BRAIN WITHOUT CONTRAST REASON FOR EXAM: Female, 53 years old. Confusion. TECHNIQUE: Transaxial CT imaging of the brain was performed without administration of intravenous contrast material. Individualized dose optimization techniques were used for this CT. COMPARISON: 09/27/2016 CT brain. FINDINGS: No evidence of intracranial hemorrhage, mass, infarct or hydrocephalus. No skull fracture. Visualized paranasal sinuses and mastoid air cells patent. Visualized extracranial soft tissues unremarkable. CT/Brain/Head without Contrast IMPRESSION: Negative CT brain without contrast. Electronically Signed: Marko Hollingsworth, at 22:28 EST Tel , Service support ,
[2019-01-08] MEDS: 0.9% Normal Saline 1,000 ML 1000 ML IV ×2 (21:13→22:08)
[2019-01-08 21:27] LABS: Bacteria 0 SEEN /hpf (None Seen); Mucous, Urine 0 SEEN /hpf (<or=2+); Red Blood Cells-Urine 0 SEEN /hpf (0-5); Squamous Epithelial Cells - UA 0 SEEN /hpf (5-10)
[2019-01-08 21:31] LABS: Absolute Lymphocyte Count 2.09 X10^3/uL (0.83-4.51); Absolute Neutrophil Count 8.7 X10^3/uL (2.0-7.7); Basophil% 0.8 % (0-1); Eosinophil# 0.22 X10^3/uL; Eosinophils% 1.8 % (0-5); Hematocrit 43.3 % (37-47); Hemoglobin 13.6 g/dL (12.0-15.0); Lymphocyte # 2.09 X10^3/ul (4.0); Lymphocyte % 17.6 % (19-41); Mean Corp Hgb Conc 31.4 g/dL (32-36); Mean Corpuscular Hgb 28.2 pg (27.0-32.0); Mean Corpuscular Volume 89.8 fL (81-99); Mean Platelet Vol. 11.4 fl (6.2-12.0); Monocyte# 0.79 X10^3/uL; Monocyte% 6.6 % (0-10); NRBC Flagged by Analyzer 0 % (0-5); Neutrophil # 8.65 X10^3/uL (2.7-7.7); Neutrophil % 72.8 % (47-70); Platelet Count 226 K/mm3 (150-450); RBC Distribution Width CV 15.6 % (11.6-14.6); RBC Distribution Width SD 51.4 fl (35.1-43.9); Red Blood Count 4.82 M/mm3 (4.2-5.4); White Blood Count 11.9 K/mm3 (4.4-11.0)
[2019-01-08 21:32] LABS: Color, Urine Yellow (Yellow); Glucose, Dipstick Normal (Normal); Ketone-Dipstick 5 mg/dl (Negative); Leukocyte Esterase-Dipstick 25 /ul (Negative); Nitrite-Dipstick Negative (Negative); Occult Blood-Urine Negative /ul (Negative); Protein-Dipstick Negative (Negative); Specific Gravity, Urine 1.015 (1.002-1.030); Urine Bilirubin Dipstick Negative (Negative); Urine Clarity Clear (Clear); Urine Urobilinogen Normal (Normal)
[2019-01-08 21:40] LABS: International Normalized Ratio 1.2; Partial Thromboplast Time 33.2 Seconds (24.1-36.2); Prothrombin Time (Protime)PT. 15.2 SECONDS (11.7-14.9)
--- NOTE | 2019-01-08 21:40 | RAD_ITS ---
STUDY: X-RAY CHEST REASON FOR EXAM: Female, 53 years old. Cough. TECHNIQUE: 2 view chest. COMPARISON: 10/20/2018 CT chest. FINDINGS: No evidence of pneumonia, pulmonary edema, pneumothorax or pleural effusion. Emphysematous changes within the lungs. Cardiac silhouette, hilar and mediastinal contours with no acute findings. Atherosclerosis of the thoracic aorta. Degenerative osseous changes with no acute osseous abnormality. RAD/Chest PA and Lateral IMPRESSION: No acute findings. Mild emphysema. Electronically Signed: Marko Hollingsworth, at 22:30 EST Tel , Service support ,
[2019-01-08 21:41] LABS: Hyaline Cast 25-50 SEEN /lpf (0-5)
[2019-01-08 21:42] LABS: Transitional Epithelial - Ur 0-5 SEEN /hpf (0-5); White Blood Cells 0-5 SEEN /hpf (0-5)
[2019-01-08 21:45] VITALS: BP 97/55; PULSE 67; RESP 13; TEMP 36.8; O2SAT 94
[2019-01-08 21:50] LABS: Amphetamine Urine VISTA NEGATIVE (<1000 ng/mL); Barbiturate Urine VISTA NEGATIVE (< 200 ng/mL); Benzodiazepine Urine VISTA NEGATIVE (< 200 ng/mL); Cocaine Urine VISTA NEGATIVE (< 300 ng/mL); Ecstacy Urine VISTA NEGATIVE (< 500 ng/mL); Methadone Urine VISTA NEGATIVE (< 300 ng/mL); PCP Urine VISTA NEGATIVE (< 25 ng/mL); THC Urine VISTA POSITIVE (< 50 ng/mL); Vista UDS pH Range 5
[2019-01-08 21:55] LABS: AST(SGOT) 36 U/L (15-37); Alanine Aminotransfer ALT/SGPT 13 U/L (13-56); Albumin, Serum 3.3 g/dL (3.2-5.0); Alkaline Phosphatase 117 U/L (45-117); Anion Gap 7 (5-15); BUN 23 mg/dL (7-18); BUN/Creat Ratio 11.1 RATIO (10-20); Bilirubin, Direct 0.07 mg/dL (0.00-0.30); Calcium,Total 8.3 mg/dL (8.5-10.1); Chloride 107 mmol/L (98-107); Creatinine, Serum 2.07 mg/dL (0.55-1.02); EST Glomerular Filtration Rate 26 mL/min (>60); Est Glom Filt Rate - Afr Amer 32 mL/min (>60); Estimated Creatinine Clearance 24.29 ml/min; Globulin 3.7 g/dL (2.2-4.2); Glucose 73 mg/dL (74-106); Lipase 37 U/L (73-393); Magnesium 1.6 mg/dL (1.6-2.6); Potassium 3.3 mmol/L (3.5-5.1); Sodium Level 137 mmol/L (136-145)
[2019-01-08 22:02] LABS: Ammonia < 10.0 umol/L (11-32)
--- NOTE | 2019-01-08 22:05 | ED.DCSUM_ITS ---
- ER Visit Summary Date of Service: 01/08/19 Chief Complaint: Confusion History of Present Illness: The patient is a 53 F who was brought to the emergency department after neighbors called the ambulance stating that she has not been acting right for 2 days. They found her sitting naked in her house wearing her oxygen. Reportedly she was diagnosed with a urinary tract infection 2 days ago but did not take the medications due to monetary issues. 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 Cough shortness of breath and some rhinorrhea the patient really does not have any other positive review of systems at this time. Patient wears home oxygen but does not smoke while on it she has not ate today. Physical Examination: Afebrile vital signs are stable Gen: Well-nourished well-developed Head: Normocephalic atraumatic Eyes: Perrl EOMI ENT: TMs clear no rhinorrhea very dry mucous membranes. Neck: Supple no lymphadenopathy no JVD nontender CVS: Regular rate rhythm no murmurs normal S1-S2 Respiratory: No distress faint expiratory wheeze chest nontender Abdomen: Soft nontender nondistended normal bowel sounds no masses Back: Nontender Extremity: Nontender no edema Skin: Normal color no rash Neuro: Patient is alert but not orientated. Speech seems slurred. CN II-XII intact normal strength sensation reflexes no asterixis Psych: Inappropriate affect Test Results: EKG demonstrated T wave inversion V1 through V4 this is changed from 2017. Troponin is negative. White count slightly elevated 11. Toxicology work-up positive only for THC. Negative alcohol. Creatinine is elevated office since the last reading of 2. No evidence of urinary tract infection. CT brain and chest x-ray showed no acute findings. Emergency Department Course and Treatment: Patient received IV fluids. Her daughter came to the emergency department and notes that her dysarthria is worse than normal. She also states that her mom is an alcoholic. Though she tells me that she knows for fact that she did not have any alcohol yesterday or today. Patient states she has not had any alcohol since the which the daughter states is not true. We are going to continue to hydrate the patient bring her in for further evaluation Impression: 1. Encephalopathy 2. Acute kidney injury 3. Dehydration 4. Alcoholism This note was generated with [employer] software. It may contain incorrect words, spelling, and punctuation that were not noted in review of the chart prior to signing ED Disposition - Plan for ED Patient: Referrals: Remi Veras MD [Primary Care Provider] -
[2019-01-08 22:10] LABS: Alcohol, Blood (Medical)-Serum < 3.0 mg/dL
[2019-01-08 23:00] VITALS: BP 97/48; PULSE 68; RESP 14; TEMP 36.6; O2SAT 98
--- NOTE | 2019-01-08 23:03 | PCM.HP.STD ---
Problem List (1) Acute encephalopathy Status: Acute (2) ERIN (acute kidney injury) Status: Acute (3) Stage 2 moderate COPD by GOLD classification Status: Chronic Comment: FEV1 58% (4) AMIE (obstructive sleep apnea) Status: Chronic Comment: CPAP 13 cm water (5) Tobacco dependency Status: Chronic Comment: 1 pack/day (6) COPD (chronic obstructive pulmonary disease) Status: Chronic (7) Candidiasis of mouth Status: Inactive (8) Chronic hypoxemic respiratory failure Status: Chronic Comment: Requires 2 L of nasal cannula oxygen with exertion (9) Shortness of breath Status: Inactive Comment: Patient has been told she has COPD. She denies ever having PFTs. Will obtain complete PFT and follow up with Dr Wooten to discuss test results and possible treatments. She also has shortness of breath on exertion, will evaluate for possible exertional hypoxia with a pulmonary stress test. (10) Trochanteric bursitis Status: Chronic (11) Hip pain, right Status: Chronic (12) Hypokalemia Status: Acute (13) Jose Manuel-Danlos syndrome Status: Chronic History of Present Illness Date of Admission: 01/08/19 Chief Complaint: Confusion. The patient is a 53 year old F with a significant history of alcoholism; cirrhosis; COPD; depression; hypertension; peripheral artery disease and tobacco abuse who presented to the emergency department with confusion. Per patient's daughter, patient was at her home naked with her windows and doors opened. Also patient had in possession her daughters dog that she was supposed to look after. The dog was let out. Also per neighbors patient has been confused. Per patient's daughter, at baseline patient has some garbled speech but her garbled speech has increased. Patient reports that she has not been drinking alcohol in about a week. Per patient's daughter typically patients drinks about a pint of alcohol in a day. Past Medical History Past Medical History (Chronic Problems): Chronic Problems (Last Reviewed 01/09/19 @ 06:05 by Sukhjinder Singletary MD) COPD (chronic obstructive pulmonary disease) (Chronic) Stage 2 moderate COPD by GOLD classification (Chronic) FEV1 58% AMIE (obstructive sleep apnea) (Chronic) CPAP 13 cm water Tobacco dependency (Chronic) 1 pack/day Chronic hypoxemic respiratory failure (Chronic) Requires 2 L of nasal cannula oxygen with exertion Trochanteric bursitis (Chronic) Hip pain, right (Chronic) Jose Manuel-Danlos syndrome (Chronic) Medical History: Medical History (Last Reviewed 01/09/19 @ 06:08 by Sukhjinder Singletary MD) Tobacco dependency (Chronic) F17.200 1 pack/day Chronic hypoxemic respiratory failure (Chronic) J96.11 Requires 2 L of nasal cannula oxygen with exertion COPD (chronic obstructive pulmonary disease) J44.9 Cirrhosis K74.60 Depression F32.9 Emphysema J43.9 Hypertension I10 Peripheral vascular disease I73.9 delivery delivered O82 Allergies atropine sulfate [From ] Allergy (Verified 01/08/19 20:50) Hives hyoscyamine sulfate [From ] Allergy (Verified 01/08/19 20:50) Hives phenobarbital [From ] Allergy (Verified 01/08/19 20:50) Hives scopolamine hydrobromide [From ] Allergy (Verified 01/08/19 20:50) Hives gabapentin Adverse Reaction (Verified 01/08/19 20:50) Other I CANT TALK. MAKES ME FEEL LIKE RUBBER PHENABARBITOL Allergy (Uncoded 01/08/19 20:50) Other Home Medications: Ambulatory Orders Medication Instructions Recorded Amitriptyline HCl [Elavil] 100 mg PO QHS 03/11/13 Diltiazem CD [Cardizem CD] 120 mg PO DAILY 03/11/13 Omeprazole [Prilosec] 40 mg PO DAILY 11/13/13 Lisinopril/Hydrochlorothiazide 1 tab PO DAILY 06/30/15 [Zestoretic 11/21.5 Tablet] Atorvastatin Calcium [Lipitor] 20 mg PO QHS PRN 01/19/17 Metoprolol Tartrate [Lopressor 25 mg PO DAILY 01/19/17 (Beta Maxi)] Paroxetine [Paxil] 20 mg PO DAILY 01/19/17 albuterol sulfate 2.5 mg/3 mL 2.5 mg INHALATION Q4H PRN #180 vial 04/14/17 (0.083 %) solution for nebulization sucralfate 1 gram tablet 40 mg PO ONCE tab 04/14/17 Albuterol Sulfate [Ventolin Hfa] 2 puff INHALATION Q4H 01/08/19 Clotrimazole 10 mg MUCOUS MEMBRANE TID 01/08/19 Cyclobenzaprine HCl 10 mg PO DAILY PRN 01/08/19 Fluticasone/Umeclidin/Vilanter 1 inh INHALATION DAILY 01/08/19 [Trelegy Ellipta] Fluticasone/Vilanterol [Breo 1 dose INHALATION DAILY 01/08/19 Ellipta 200-25 Mcg INH] Ondansetron HCl [Zofran] 4 mg PO Q4H PRN 01/08/19 Surgical History: Surgical History (Last Reviewed 01/09/19 @ 06:08 by Sukhjinder Singletary MD) History of hernia repair Z98.890, Z87.19 History of hip replacement Z96.649 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 Surgical History: - - Has had 14 hernia surgeries on abdomen Psychiatric History: - - Chronic insomnia PHARMACEUTICAL SALES History: No pertinent PHARMACEUTICAL SALES history Lives: Alone Smoking Status: Current every day smoker Tobacco Use: Cigarettes - *Family History Maternal Family History: Family History (Last Reviewed 01/09/19 @ 06:08 by Sukhjinder Singletary MD) Mother COPD (chronic obstructive pulmonary disease) History Items: Unknown Review of Systems Constitutional: Denies: Chills, Fever, Weight Change HEENT: Denies: Head Aches, Sinus Congestion, Sinus Drainage Cardiovascular: Denies: Chest Pain, Palpitations Respiratory: Denies: Cough, Shortness of breath at rest, Sputum production Gastrointestinal: Denies: Abdominal Pain, Nausea, Vomiting Genitourinary: Denies: Dysuria Musculoskeletal: Denies: Joint Pain, Joint Tenderness Skin: Denies: Rash, Wounds Neurological: Reports: Change in Speech, Confusion. Denies: Focal weakness, Numbness, Tingling Psychiatric: Denies: Anxiety, Depression, Homicidal Ideations, Suicidal Ideations Hematologic/ Lymphatic: Denies: Easy Bruising, Easy Bleeding VTE Information - Inpt Only VTE Present on Admission: No VTE Mechan Device Prophylaxis: None VTE Pharm Prophylaxis ordered?: Yes Patient Problems: Active and Suspected Problems (Last Reviewed 01/09/19 @ 06:05 by Sukhjinder Singletary MD) Acute encephalopathy (Acute) ERIN (acute kidney injury) (Acute) - Physical Exam Vitals/I&O's: Vital Signs Temp Pulse Resp BP Pulse Ox 98.3 F 67 13 97/55 L 94 01/08/19 21:45 01/08/19 21:45 01/08/19 21:45 01/08/19 21:45 01/08/19 21:45 Oxygen Flow Rate (L/min) 2 Oxygen Delivery Method Nasal Cannula Weight: 77.8 kg Body Mass Index (BMI) 31.4 Intake and Output for Last 24 Hours 01/06/19 01/07/19 01/08/19 23:59 23:59 23:59 Intake Total 916.67 / 916.67 Balance 916.67 / 916.67 General: Alert, Confused - Patient knows her name. She knows where she is but she does not know the day; the month or the year. HEENT: Atraumatic, PERRLA, EOMI, Normocephalic Oral: Dry Mucosa Neck: Supple, No JVD, Negative Carotid Bruits Lungs: Wheezes Cardiovascular: Regular rate, Normal S1, Normal S2, No murmurs Abdomen: Bowel Sounds Present, Soft, Non Tender Extremities: No edema, Capillary Refill Less than 3 Seconds Skin: No rashes, No breakdown Musculoskeletal: No Tenderness to Palpation of Joints or Extremities Neurological: Cranial nerves II-XII grossly intact Psych/Mental Status: Normal Affect, Appropriate Laboratory Results 01/08/19 21:05: WBC 11.9 H, RBC 4.82, Hgb 13.6, Hct 43.3, MCV 89.8, MCH 28.2, MCHC 31.4 L, RDW Std Deviation 51.4 H, RDW Coeff of Patricia 15.6 H, Plt Count 226, MPV 11.4, Immature Gran % (Auto) 0.400, Neut % (Auto) 72.8 H, Lymph % (Auto) 17.6 L, [place] % (Auto) 6.6, Eos % (Auto) 1.8, Baso % (Auto) 0.8, Absolute Neuts (auto) 8.7 H, Absolute Lymphs (auto) 2.09, Nucleated RBC % 0 01/08/19 21:05: PT 15.2 H, INR 1.2, APTT 33.2 01/08/19 21:05: Sodium 137, Potassium 3.3 L, Chloride 107, Carbon Dioxide 23.0, Anion Gap 7, BUN 23 H, Creatinine 2.07 H, Estim Creat Clear Calc 24.29, Est GFR (MDRD) Af Amer 32 L, Est GFR (MDRD) Non-Af 26 L, BUN/Creatinine Ratio 11.1, Glucose 73 L, Calcium 8.3 L, Magnesium 1.6, Total Bilirubin 0.40, Direct Bilirubin 0.07, AST 36, ALT 13, Alkaline Phosphatase 117, Troponin I < 0.015, Total Protein 7.0, Albumin 3.3, Globulin 3.7, Lipase 37 L 01/08/19 21:05: Ethyl Alcohol < 3.0 01/08/19 21:05: Ammonia < 10.0 L 01/08/19 21:20: Urine Opiates Screen NEGATIVE, Urine Methadone Screen NEGATIVE, Ur Barbiturates Screen NEGATIVE, Ur Phencyclidine Scrn NEGATIVE, Ur Amphetamines Screen NEGATIVE, U Methamphetamin-MDMA NEGATIVE, U Benzodiazepines Scrn NEGATIVE, Urine Cocaine Screen NEGATIVE, U Cannabinoids Screen POSITIVE H, Ur Drug Screen Comment 01/08/19 21:20: Urine Color Yellow, Urine Clarity Clear, Urine pH 5.0, Ur Specific [place] 1.015, Urine Protein Negative, Urine Glucose (UA) Normal, Urine Ketones 5 H, Urine Occult Blood Negative, Urine Nitrite Negative, Urine Bilirubin Negative, Urine Urobilinogen Normal, Ur Leukocyte Esterase 25 H, Urine RBC 0 SEEN, Urine WBC 0-5 SEEN, Ur Squamous Epith Cells 0 SEEN, Ur Transition Epith Cell 0-5 SEEN, Urine Bacteria 0 SEEN, Hyaline Casts 25-50 SEEN, Urine Mucus 0 SEEN Current Medications Sodium Chloride () 1,000 mls @ 999 mls/hr IV .Q1H1M ONE Stop: 01/09/19 00:02 Assessment/Plan All Active Problems (Last Reviewed 01/09/19 @ 06:05 by Sukhjinder Singletary MD) Acute encephalopathy (Acute) ERIN (acute kidney injury) (Acute) Hypokalemia (Acute) The patient is a 53 year old F with a significant history of alcoholism; cirrhosis; COPD; depression; hypertension; peripheral artery disease and tobacco abuse who presented to the emergency department with confusion increased garbled speech yesterday for acute encephalopathy. Acute encephalopathy We will do encephalopathy work-up by checking TSH; vitamin B-12 and ABG. Her sodium and calcium level are okay. However she has elevated creatinine; clinically she looks dry. Cannot rule out acute uremic encephalopathy at this time. Received IV boluses at the emergency department. We will continue patient on IV hydration. CT brain was unremarkable. With family complaint of more garbled speech we will get MRI/MRA of her head and neck ERIN Likely secondary to Dehydration. Per family patient typically drinks sprite or alcohol; and there was no sprite at home when her daughter arrived. On presentation her creatinine was 2.07. Review of old records last creatinine in 2018 was 0.93. And in 2017 her creatinine was 0.83 and 1.19. BUN is 23. BUN over creatinine is 11.1. Likely prerenal which is leading to ATN. IV hydration as above. Avoid nephrotoxins. Home lisinopril and hydrochlorthiazide held. Trend BMP. Hypertension Although patient's is on home blood pressure medications on presentation her systolic blood pressure was in the low 100s to 90s. Would hold all home blood pressure medications. IV hydration as above. Trend blood pressure. Alcohol dependency Reportedly patient has not taken any alcohol in about a week secondary to lack of funds. Will patient on multivitamins; folic acid and thiamine. Will check magnesium level because her potassium was low. Hypokalemia Supplement Trend BMP COPD Appears not to be in exacerbation. On home ICS?LABA-LAMA (Trelegy). Will put patient on Pulmicort and DuoNeb. Albuterol as needed. DVT prophylaxis Subcutaneous Lovenox Code Visit Inpatient E&M: 01130 Init Hosp L3
[2019-01-08 23:13] VITALS: BP 97/61; PULSE 68; RESP 16; O2SAT 94
[2019-01-08 23:25] LABS: Lactic Acid 1.1 mmol/L (0.4-2.0)
[2019-01-08] MEDS: 0.9% Normal Saline 1,000 ML 999 ML IV (23:42)
[2019-01-09] VITALS (12 sets, daily range): BP systolic 88–128; BP diastolic 39–60; PULSE 66–73; RESP 16–22; TEMP 36.3–36.9; O2SAT 93–96; BMI 31.2; BMI 31.3
--- NOTE | 2019-01-09 00:21 | MRI_ITS ---
STUDY: MRI BRAIN WITHOUT CONTRAST REASON FOR EXAM: Female, 53 years old. Confusion and slurred speech. TECHNIQUE: Standardized multiplanar fat and water weighted pulse sequences were obtained. Limited sequences due to patient motion. COMPARISON: None. FINDINGS: There is mild cerebral atrophy with widening of the extra-axial spaces and ventricular dilatation. Normal white matter tracts of the supratentorial brain. There is no evidence for recent intracranial ischemia or other cause of cytotoxic edema on diffusion weighted imaging (DWI). Normal T2* images of the brain without demonstrated susceptibility artifact. There is no demonstrated hemosiderin stain. Normal bilateral basal ganglia. Normal thalami. There is no extra-axial fluid accumulation. Normal flow voids within the major intracranial circulation suggesting patency by spin echo criteria. Normal sella turcica, pituitary gland, infundibular stalk, optic chiasm and hypothalamus. Normal tectal plate and pineal gland. Normal midbrain, jin and medulla. Normal cerebellum. Normal basal cisterns. Normal bilateral temporal bones. Normal bilateral internal auditory canals. No demonstrated orbital abnormality, within the constraints of a routine brain study. Normal visualized paranasal sinuses. Normal calvarium and skull base. Normal visualized soft tissue structures. Normal visualized upper cervical spine. MRI/Brain without Contrast IMPRESSION: Overall limited exam due to motion artifact with no evidence of acute intracranial bleed or ischemia. Electronically Signed: Balwinder Moran DO at 16:48 EST , Service support ,
[2019-01-09 00:57] LABS: Magnesium 1.6 mg/dL (1.6-2.6); Thyroid Stim Hormone (TSH) 0.47 uIU/mL (0.358-3.74)
[2019-01-09] MEDS: 0.9% Normal Saline 1,000 ML 150 ML IV ×2 (00:58→09:53)
[2019-01-09] MEDS: Folic Acid 1 MG Tablet PO (01:03)
[2019-01-09 01:06] LABS: Allen Test POS; Base Excess -6 mmol/L (-2 to +2); Bicarbonate 19.2 mmol/L (22-26); Blood Gas Specimen Type ART; O2 Delivery Device Nasal Can; PO2 72 mmHG (75-100); SITE R Radial; SO2 94 % (95-99); Total Carbon Dioxide 20 mmol/L; pCO2 33.7 mmHg (35-45); pH 7.36 (7.35-7.45)
[2019-01-09] MEDS: Aspirin 325 MG Tablet PO (01:20)
--- NOTE | 2019-01-09 03:00 | NURSING ---
Pt was becoming more impulsive, attempting to jump out of bed and pull out IV. Pts daughter was at bedside and requested that we keep all four side rails up because she does not feel her mother is safe with only 3 side rails. This RN explained that 4 restraints is considered a restraint and family requested that all four side rails are up.
--- NOTE | 2019-01-09 05:55 | EKG12_ITS ---
Test Reason : AM Blood Pressure : / mmHG Vent. Rate : 065 BPM Atrial Rate : 065 BPM P-R Int : 182 ms QRS Dur : 098 ms QT Int : 504 ms P-R-T Axes : 029 063 150 degrees QTc Int : 524 ms Normal sinus rhythm ST & T wave abnormality, consider anterior ischemia Abnormal ECG When compared with ECG of 08-JAN-2019 21:09, MANUAL COMPARISON REQUIRED, DATA IS UNCONFIRMED Confirmed by JING SHANNON, JOSE FRANCISCO ([id number]), social media editor ROSETTA ERICKSON ([id number]) on 01/12/2019 2:59:51 PM Referred By: Sukhjinder Singletary Confirmed By:JOSE FRANCISCO CH MD
[2019-01-09 06:25] LABS: Absolute Lymphocyte Count 1.28 X10^3/uL (0.83-4.51); Absolute Neutrophil Count 7.6 X10^3/uL (2.0-7.7); Basophil# 0.05 X10^3/uL; Basophil% 0.5 % (0-1); Eosinophil# 0.13 X10^3/uL; Eosinophils% 1.3 % (0-5); Lymphocyte # 1.28 X10^3/ul (4.0); Lymphocyte % 13.2 % (19-41); Mean Corp Hgb Conc 31.6 g/dL (32-36); Mean Corpuscular Hgb 28.7 pg (27.0-32.0); Mean Corpuscular Volume 90.9 fL (81-99); Mean Platelet Vol. 11.3 fl (6.2-12.0); Monocyte# 0.63 X10^3/uL; Monocyte% 6.5 % (0-10); NRBC Flagged by Analyzer 0 % (0-5); Neutrophil # 7.58 X10^3/uL (2.7-7.7); Neutrophil % 78.1 % (47-70); Platelet Count 175 K/mm3 (150-450); RBC Distribution Width CV 15.6 % (11.6-14.6); RBC Distribution Width SD 51.3 fl (35.1-43.9); Red Blood Count 4.18 M/mm3 (4.2-5.4); White Blood Count 9.7 K/mm3 (4.4-11.0)
[2019-01-09 06:46] LABS: Anion Gap 7 (5-15); BUN 21 mg/dL (7-18); BUN/Creat Ratio 13.9 RATIO (10-20); Calcium,Total 7.3 mg/dL (8.5-10.1); Chloride 115 mmol/L (98-107); Cholesterol 116 mg/dL (200); Creatinine, Serum 1.51 mg/dL (0.55-1.02); EST Glomerular Filtration Rate 38 mL/min (>60); Est Glom Filt Rate - Afr Amer 46 mL/min (>60); Estimated Creatinine Clearance 33.29 ml/min; Glucose 68 mg/dL (74-106); High Density Lipoprotein 28 mg/dL; Potassium 3.7 mmol/L (3.5-5.1); Sodium Level 140 mmol/L (136-145); Triglycerides 112 mg/dL; Very Low Density Lipoprotein 22 mg/dL (5-40)
--- NOTE | 2019-01-09 07:30 | PN_ITS ---
Patient Problems: Active and Suspected Problems (Last Reviewed 01/09/19 @ 06:08 by Sukhjinder Singletary MD) Acute encephalopathy (Acute) ERIN (acute kidney injury) (Acute) Vitals/I&O's: Vital Signs Temp Pulse Resp BP Pulse Ox 97.8 F 68 18 92/58 L 96 01/09/19 06:10 01/09/19 06:10 01/09/19 06:10 01/09/19 06:10 01/09/19 06:10 Oxygen Flow Rate (L/min) 2 Oxygen Delivery Method Nasal Cannula Weight: 77.5 kg Body Mass Index (BMI) 31.2 Intake and Output for Last 24 Hours 01/07/19 01/08/19 01/09/19 23:59 23:59 23:59 Intake Total / 1699 / 1699 Output Total 300 / 300 Balance / 1399 / 1399 Laboratory Results 01/08/19 21:05: WBC 11.9 H, RBC 4.82, Hgb 13.6, Hct 43.3, MCV 89.8, MCH 28.2, MCHC 31.4 L, RDW Std Deviation 51.4 H, RDW Coeff of Patricia 15.6 H, Plt Count 226, MPV 11.4, Immature Gran % (Auto) 0.400, Neut % (Auto) 72.8 H, Lymph % (Auto) 17.6 L, [place] % (Auto) 6.6, Eos % (Auto) 1.8, Baso % (Auto) 0.8, Absolute Neuts (auto) 8.7 H, Absolute Lymphs (auto) 2.09, Nucleated RBC % 0 01/08/19 21:05: PT 15.2 H, INR 1.2, APTT 33.2 01/08/19 21:05: Sodium 137, Potassium 3.3 L, Chloride 107, Carbon Dioxide 23.0, Anion Gap 7, BUN 23 H, Creatinine 2.07 H, Estim Creat Clear Calc 24.29, Est GFR (MDRD) Af Amer 32 L, Est GFR (MDRD) Non-Af 26 L, BUN/Creatinine Ratio 11.1, Glucose 73 L, Calcium 8.3 L, Magnesium 1.6, Total Bilirubin 0.40, Direct Bilirubin 0.07, AST 36, ALT 13, Alkaline Phosphatase 117, Troponin I < 0.015, Total Protein 7.0, Albumin 3.3, Globulin 3.7, Lipase 37 L 01/08/19 21:05: Ethyl Alcohol < 3.0 01/08/19 21:05: Ammonia < 10.0 L 01/08/19 21:05: Lactic Acid 1.1 01/08/19 21:05: Magnesium 1.6, TSH 0.47 01/08/19 21:05: Vitamin B12 Pending 01/08/19 21:20: Urine Opiates Screen NEGATIVE, Urine Methadone Screen NEGATIVE, Ur Barbiturates Screen NEGATIVE, Ur Phencyclidine Scrn NEGATIVE, Ur Amphetamines Screen NEGATIVE, U Methamphetamin-MDMA NEGATIVE, U Benzodiazepines Scrn NEGATIVE, Urine Cocaine Screen NEGATIVE, U Cannabinoids Screen POSITIVE H, Ur Drug Screen Comment 01/08/19 21:20: Urine Color Yellow, Urine Clarity Clear, Urine pH 5.0, Ur Specific [place] 1.015, Urine Protein Negative, Urine Glucose (UA) Normal, Urine Ketones 5 H, Urine Occult Blood Negative, Urine Nitrite Negative, Urine Bilirubin Negative, Urine Urobilinogen Normal, Ur Leukocyte Esterase 25 H, Urine RBC 0 SEEN, Urine WBC 0-5 SEEN, Ur Squamous Epith Cells 0 SEEN, Ur Transition Epith Cell 0-5 SEEN, Urine Bacteria 0 SEEN, Hyaline Casts 25-50 SEEN, Urine Mucus 0 SEEN 01/09/19 00:58: Specimen Type ART, Sample Site R Radial, pH 7.36, Bicarbonate Actual 19.2 L, POC Total CO2 20, Base Excess -6 L, O2 Saturation 94 L, ABG pCO2 33.7 L, ABG pO2 72 L, [place] Test POS, O2 Delivery Device Nasal Can, Liter Flow 2.0, Blood Gas Notified Whom HOSP 01/09/19 01:45: Troponin I < 0.015 01/09/19 05:11: WBC 9.7, RBC 4.18 L, Hgb 12.0, Hct 38.0, MCV 90.9, MCH 28.7, MCHC 31.6 L, RDW Std Deviation 51.3 H, RDW Coeff of [place] 15.6 H, Plt Count 175, MPV 11.3, Immature Gran % (Auto) 0.400, Neut % (Auto) 78.1 H, Lymph % (Auto) 13.2 L, [place] % (Auto) 6.5, Eos % (Auto) 1.3, Baso % (Auto) 0.5, Absolute Neuts (auto) 7.6, Absolute Lymphs (auto) 1.28, Nucleated RBC % 0 01/09/19 05:11: Sodium 140, Potassium 3.7, Chloride 115 H, Carbon Dioxide 18.0 L , Anion Gap 7, BUN 21 H, Creatinine 1.51 H, Estim Creat Clear Calc 33.29, Est GFR (MDRD) Af Amer 46 L, Est GFR (MDRD) Non-Af 38 L, BUN/Creatinine Ratio 13.9, Glucose 68 L, Calcium 7.3 L, Troponin I < 0.015, Triglycerides 112, Cholesterol 116, LDL Cholesterol 66, VLDL Cholesterol 22, HDL Cholesterol 28 L Current Medications Acetaminophen (Tylenol) 650 mg PO Q6H PRN PRN PRN Reason: Pain Score 1-10/Temp > 100.7 F Albuterol Sulfate (Ventolin Aerosols) 2.5 mg INHALATION Q2H PRN PRN PRN Reason: sob/wheezing Albuterol/Ipratropium (Duoneb) 3 ml INHALATION Q6HWA.RT TOY Amitriptyline HCl (Elavil) 100 mg PO QHS TOY Atorvastatin Calcium (Lipitor) 20 mg PO QHS TOY Budesonide (Pulmicort Aerosol) 0.5 mg INHALATION BID.RT TOY Dextrose (D50w Syringe) 0 gm IV X1 PRN; Protocol PRN Reason: Hypoglycemia Enoxaparin Sodium (Lovenox) 30 mg SC DAILY TOY Folic Acid (Folic Acid) 1 mg PO DAILY@0800 [facility] Last Admin: 01/09/19 01:03 Dose: 1 mg Documented by: Glucagon () 1 mg IM .X1 PRN PRN Reason: Hypoglycemia Sodium Chloride () 1,000 mls @ 150 mls/hr IV .Q6H40M [facility] Stop: 01/09/19 20:29 Last Infusion: 01/09/19 06:36 Dose: 150 mls/hr Documented by: Sodium Chloride () 250 mls @ 15 mls/hr IV .[id number] PRN PRN Reason: Saline Flush Melatonin (Melatonin) 3 mg PO QHS PRN PRN PRN Reason: INSOMNIA Multivitamins (Multivitamin) 1 tablet PO DAILYCM TOY Nicotine (Nicoderm Cq (Pbkc)) 14 mg TRANSDERM. DAILY TOY Last Admin: 01/09/19 01:03 Dose: 14 mg Documented by: Ondansetron HCl (Zofran) 4 mg IV Q8H PRN PRN PRN Reason: NAUSEA/VOMITING Pantoprazole Sodium (Protonix) 40 mg PO DAILY TOY Paroxetine HCl (Paxil) 20 mg PO DAILY TOY Sodium Chloride () 10 - 40 ml IV UD PRN PRN Reason: SALINE FLUSH Thiamine HCl (Vitamin B1) 100 mg PO BID [facility] STROKE Vital Signs/Narrative: Vital Signs Temp Pulse Resp BP Pulse Ox 01/09/19 06:10 97.8 F 68 18 92/58 L 96 01/09/19 04:10 98.5 F 67 20 H 128/50 H 93 Medical Necessity - Tobacco Use Smoking Status: Current every day smoker Tobacco Use: Cigarettes Assessment/Plan All Active Problems (Last Reviewed 01/09/19 @ 06:08 by Sukhjinder Singletary MD) Acute encephalopathy (Acute) ERIN (acute kidney injury) (Acute) Hypokalemia (Acute) Patient is a 53-year-old lady with past medical history significant for alcoholic cirrhosis, COPD hypertension admitted with altered mental status Acute encephalopathy 2 acute kidney injury 3 hypertension COPD Peripheral arterial disease Chronic alcohol use Cirrhosis of the liver secondary to alcohol use Hypokalemia DVT prophylaxis
[2019-01-09] MEDS: Ipratropium/Albuterol Sulfate 3 ML AMPUL.NEB INHALATION (07:31)
[2019-01-09] MEDS: Budesonide Respules 0.5 MG/2 ML AMPUL.NEB. INHALATION (07:31)
--- NOTE | 2019-01-09 07:37 | NURSING ---
[facility] requesting to have all 4 bedside rails up at this time
--- NOTE | 2019-01-09 08:50 | NURSING ---
This RN taking over care at this time
[2019-01-09] MEDS: Paroxetine 20 MG Tablet PO (09:48)
[2019-01-09] MEDS: Pantoprazole Sodium 40 MG Tablet PO (09:48)
[2019-01-09] MEDS: Multivitamins,Therapeutic Tablet 1 TABLET PO (09:48)
[2019-01-09] MEDS: Thiamine Hydrochloride 100 MG Tablet PO (09:48)
[2019-01-09] MEDS: Enoxaparin 30 MG/0.3 ML Syringe SC (09:51)
--- NOTE | 2019-01-09 10:08 | DCINST_ITS ---
- Discharge Diagnoses Current Active Problems: Current Active and Chronic Problems (Last Reviewed 01/09/19 @ 06:08 by Sukhjinder Singletary MD) Acute encephalopathy (Acute) ERIN (acute kidney injury) (Acute) Allergies/Adverse Reactions: Allergies atropine sulfate [From ] Allergy (Verified 01/08/19 20:50) Hives hyoscyamine sulfate [From ] Allergy (Verified 01/08/19 20:50) Hives phenobarbital [From ] Allergy (Verified 01/08/19 20:50) Hives scopolamine hydrobromide [From ] Allergy (Verified 01/08/19 20:50) Hives gabapentin Adverse Reaction (Verified 01/08/19 20:50) Other I CANT TALK. MAKES ME FEEL LIKE RUBBER PHENABARBITOL Allergy (Uncoded 01/08/19 20:50) Other Medications to take at Discharge Amitriptyline HCl [Elavil] 100 mg PO QHS 03/11/13 Diltiazem CD [Cardizem CD] 120 mg PO DAILY 03/11/13 Omeprazole [Prilosec] 40 mg PO DAILY 11/13/13 Lisinopril/Hydrochlorothiazide [Zestoretic 11/21.5 Tablet] 1 tab PO DAILY 06/30/15 Atorvastatin Calcium [Lipitor] 20 mg PO QHS PRN 01/19/17 Metoprolol Tartrate [Lopressor (Beta Maxi)] 25 mg PO DAILY 01/19/17 Paroxetine [Paxil] 20 mg PO DAILY 01/19/17 albuterol sulfate 2.5 mg/3 mL (0.083 %) solution for nebulization 2.5 mg INHALATION Q4H PRN #180 vial 04/14/17 sucralfate 1 gram tablet 40 mg PO ONCE tab 04/14/17 Albuterol Sulfate [Ventolin Hfa] 2 puff INHALATION Q4H 01/08/19 Clotrimazole 10 mg MUCOUS MEMBRANE TID 01/08/19 Cyclobenzaprine HCl 10 mg PO DAILY PRN 01/08/19 Fluticasone/Umeclidin/Vilanter [Trelegy Ellipta] 1 inh INHALATION DAILY 01/08/19 Fluticasone/Vilanterol [Breo Ellipta 200-25 Mcg INH] 1 dose INHALATION DAILY 01/08/19 Ondansetron HCl [Zofran] 4 mg PO Q4H PRN 01/08/19 Primary Care Physician: Remi Veras MD [Primary Care Provider] - Test Results: Test results from this visit will be discussed in further detail at your follow- up appointment, if applicable. Proposed Discharge Date: 01/09/19
[2019-01-09] MEDS: 0.9% Saline Lock 10 ML Syringe IV (10:57)
[2019-01-09] MEDS: LORazepam 2 MG/ML Syringe 0.5 MG IV (10:58)
--- NOTE | 2019-01-09 11:07 | PCM.DC.SUM ---
Discharge Date and Diagnosis - Problem List Patient Problems: Active and Suspected Problems (Last Reviewed 01/09/19 @ 06:08 by Sukhjinder Singletary MD) Acute encephalopathy (Acute) ERIN (acute kidney injury) (Acute) Date of Admission: 01/08/19 Date of Discharge: 01/09/19 - Primary Discharge Diagnosis Active and Suspected Problems (Last Reviewed 01/09/19 @ 06:08 by Sukhjinder Singletary MD) Acute encephalopathy (Acute) ERIN (acute kidney injury) (Acute) - Secondary Discharge Diagnosis Chronic Problems (Last Reviewed 01/09/19 @ 06:08 by Sukhjinder Singletary MD) COPD (chronic obstructive pulmonary disease) (Chronic) Stage 2 moderate COPD by GOLD classification (Chronic) FEV1 58% AMIE (obstructive sleep apnea) (Chronic) CPAP 13 cm water Tobacco dependency (Chronic) 1 pack/day Chronic hypoxemic respiratory failure (Chronic) Requires 2 L of nasal cannula oxygen with exertion Trochanteric bursitis (Chronic) Hip pain, right (Chronic) Jose Manuel-Danlos syndrome (Chronic) Hospital Course and Treatment Imaging Results: Clinical Impression(s) from Imaging Studies Brain CT 01/08/19 20:58 IMPRESSION: Negative CT brain without contrast. Electronically Signed: Pacosadaf Darrick, at 22:28 EST Tel , Service support , Chest X-Ray 01/08/19 21:40 IMPRESSION: No acute findings. Mild emphysema. Electronically Signed: Marko Hollingsworth, at 22:30 EST Tel , Service support , Operations: None Summary of Care Provided: Patient is a 53-year-old lady with past medical history significant for alcoholic cirrhosis, COPD hypertension admitted with altered mental status. Patient was noted to have slurred speech. She also did complain of bilateral leg weakness. Discussion with patient's sister revealed the presence of myasthenia gravis in the mother. There was also initial confusion if patient had myasthenia gravis however patient denied this. In view of patient presentation slurred speech and bilateral weakness with a negative head CT and nonavailability of a neurologist decision was made to transfer patient to tertiary care center. This was discussed with the patient as well as his sister prior to patient being transferred and both of them did agree. Call was placed to [facility] patient was accepted for transfer Assessment: 1. Acute encephalopathy 2. Acute kidney injury 3. Hypertension 4. COPD 5. Peripheral arterial disease 7. Cirrhosis of the liver secondary to alcohol use 8. Hypokalemia 9. DVT prophylaxis Patient Problems: Active and Suspected Problems (Last Reviewed 01/09/19 @ 06:08 by Sukhjinder Singletary MD) Acute encephalopathy (Acute) ERIN (acute kidney injury) (Acute) - Physical Exam Vitals/I&O's: Vital Signs Temp Pulse Resp BP Pulse Ox 97.3 F L 70 18 92/60 96 01/09/19 09:45 01/09/19 09:45 01/09/19 09:45 01/09/19 09:45 01/09/19 09:45 Oxygen Flow Rate (L/min) 2 Oxygen Delivery Method Nasal Cannula Weight: 77.5 kg Body Mass Index (BMI) 31.2 Intake and Output for Last 24 Hours 01/07/19 01/08/19 01/09/19 23:59 23:59 23:59 Intake Total 1915.67 / 1915.67 2316.5 / 2316.5 Output Total 300 / 300 Balance 1916.67 / 1916.67 / 2015.5 General: No apparent distress Lungs: Diminished Neurological: Slurred Speech Psych/Mental Status: Flat Affect Laboratory Results 01/08/19 21:05: WBC 11.9 H, RBC 4.82, Hgb 13.6, Hct 43.3, MCV 89.8, MCH 28.2, MCHC 31.4 L, RDW Std Deviation 51.4 H, RDW Coeff of Patricia 15.6 H, Plt Count 226, MPV 11.4, Immature Gran % (Auto) 0.400, Neut % (Auto) 72.8 H, Lymph % (Auto) 17.6 L, Sutter % (Auto) 6.6, Eos % (Auto) 1.8, Baso % (Auto) 0.8, Absolute Neuts (auto) 8.7 H, Absolute Lymphs (auto) 2.09, Nucleated RBC % 0 01/08/19 21:05: PT 15.2 H, INR 1.2, APTT 33.2 01/08/19 21:05: Sodium 137, Potassium 3.3 L, Chloride 107, Carbon Dioxide 23.0, Anion Gap 7, BUN 23 H, Creatinine 2.07 H, Estim Creat Clear Calc 24.29, Est GFR (MDRD) Af Amer 32 L, Est GFR (MDRD) Non-Af 26 L, BUN/Creatinine Ratio 11.1, Glucose 73 L, Calcium 8.3 L, Magnesium 1.6, Total Bilirubin 0.40, Direct Bilirubin 0.07, AST 36, ALT 13, Alkaline Phosphatase 117, Troponin I < 0.015, Total Protein 7.0, Albumin 3.3, Globulin 3.7, Lipase 37 L 01/08/19 21:05: Ethyl Alcohol < 3.0 01/08/19 21:05: Ammonia < 10.0 L 01/08/19 21:05: Lactic Acid 1.1 01/08/19 21:05: Magnesium 1.6, TSH 0.47 01/08/19 21:05: Vitamin B12 Pending 01/08/19 21:20: Urine Opiates Screen NEGATIVE, Urine Methadone Screen NEGATIVE, Ur Barbiturates Screen NEGATIVE, Ur Phencyclidine Scrn NEGATIVE, Ur Amphetamines Screen NEGATIVE, U Methamphetamin-MDMA NEGATIVE, U Benzodiazepines Scrn NEGATIVE, Urine Cocaine Screen NEGATIVE, U Cannabinoids Screen POSITIVE H, Ur Drug Screen Comment 01/08/19 21:20: Urine Color Yellow, Urine Clarity Clear, Urine pH 5.0, Ur Specific [place] 1.015, Urine Protein Negative, Urine Glucose (UA) Normal, Urine Ketones 5 H, Urine Occult Blood Negative, Urine Nitrite Negative, Urine Bilirubin Negative, Urine Urobilinogen Normal, Ur Leukocyte Esterase 25 H, Urine RBC 0 SEEN, Urine WBC 0-5 SEEN, Ur Squamous Epith Cells 0 SEEN, Ur Transition Epith Cell 0-5 SEEN, Urine Bacteria 0 SEEN, Hyaline Casts 25-50 SEEN, Urine Mucus 0 SEEN 01/09/19 00:58: Specimen Type ART, Sample Site R Radial, pH 7.36, Bicarbonate Actual 19.2 L, POC Total CO2 20, Base Excess -6 L, O2 Saturation 94 L, ABG pCO2 33.7 L, ABG pO2 72 L, Zacarias Test POS, O2 Delivery Device Nasal Can, Liter Flow 2.0, Blood Gas Notified Whom HOSP 01/09/19 01:45: Troponin I < 0.015 01/09/19 05:11: WBC 9.7, RBC 4.18 L, Hgb 12.0, Hct 38.0, MCV 90.9, MCH 28.7, MCHC 31.6 L, RDW Std Deviation 51.3 H, RDW Coeff of Patricia 15.6 H, Plt Count 175, MPV 11.3, Immature Gran % (Auto) 0.400, Neut % (Auto) 78.1 H, Lymph % (Auto) 13.2 L, Sutter % (Auto) 6.5, Eos % (Auto) 1.3, Baso % (Auto) 0.5, Absolute Neuts (auto) 7.6, Absolute Lymphs (auto) 1.28, Nucleated RBC % 0 01/09/19 05:11: Sodium 140, Potassium 3.7, Chloride 115 H, Carbon Dioxide 18.0 L, Anion Gap 7, BUN 21 H, Creatinine 1.51 H, Estim Creat Clear Calc 33.29, Est GFR (MDRD) Af Amer 46 L, Est GFR (MDRD) Non-Af 38 L, BUN/Creatinine Ratio 13.9, Glucose 68 L, Calcium 7.3 L, Troponin I < 0.015, Triglycerides 112, Cholesterol 116, LDL Cholesterol 66, VLDL Cholesterol 22, HDL Cholesterol 28 L 01/09/19 08:02: Troponin I < 0.015 Current Medications Acetaminophen (Tylenol) 650 mg PO Q6H PRN PRN PRN Reason: Pain Score 1-10/Temp > 100.7 F Albuterol Sulfate (Ventolin Aerosols) 2.5 mg INHALATION Q2H PRN PRN PRN Reason: sob/wheezing Albuterol/Ipratropium (Duoneb) 3 ml INHALATION Q6HWA.RT TOY Last Admin: 01/09/19 07:31 Dose: 3 ml Documented by: Amitriptyline HCl (Elavil) 100 mg PO QHS TOY Atorvastatin Calcium (Lipitor) 20 mg PO QHS TOY Budesonide (Pulmicort Aerosol) 0.5 mg INHALATION BID.RT [facility] Last Admin: 01/09/19 07:31 Dose: 0.5 mg Documented by: Dextrose (D50w Syringe) 0 gm IV X1 PRN; Protocol PRN Reason: Hypoglycemia Enoxaparin Sodium (Lovenox) 30 mg SC DAILY [facility] Last Admin: 01/09/19 09:51 Dose: 30 mg Documented by: Folic Acid (Folic Acid) 1 mg PO DAILY@0800 [facility] Last Admin: 01/09/19 01:03 Dose: 1 mg Documented by: Glucagon () 1 mg IM .X1 PRN PRN Reason: Hypoglycemia Sodium Chloride () 1,000 mls @ 150 mls/hr IV .[id number] [facility] Stop: 01/09/19 20:29 Last Infusion: 01/09/19 10:58 Dose: 0 mls/hr Documented by: Sodium Chloride () 250 mls @ 15 mls/hr IV .[id number] PRN PRN Reason: Saline Flush Melatonin (Melatonin) 3 mg PO QHS PRN PRN PRN Reason: INSOMNIA [facility]it[facility] ([facility]ivitamin) [facility] Last Admin: 01/09/19 09:48 Dose: 1 tablet Documented by: Nicotine (Nicoderm Cq (Pbkc)) 14 mg TRANSDERM. DAILY [facility] Last Admin: 01/09/19 09:51 Dose: 14 mg Documented by: Ondansetron HCl (Zofran) 4 mg IV Q8H PRN PRN PRN Reason: NAUSEA/VOMITING Pantoprazole Sodium (Protonix) 40 mg PO DAILY [facility] Last Admin: 01/09/19 09:48 Dose: 40 mg Documented by: Paroxetine HCl (Paxil) 20 mg PO DAILY [facility] Last Admin: 01/09/19 09:48 Dose: 20 mg Documented by: Sodium Chloride () 10 - 40 ml IV UD PRN PRN Reason: SALINE FLUSH Last Admin: 01/09/19 10:57 Dose: 10 ml Documented by: Thiamine HCl (Vitamin B1) 100 mg PO BID [facility] Last Admin: 01/09/19 09:48 Dose: 100 mg Documented by: Discharge Diet: No Restrictions Home Medications: Medications to take at Discharge Amitriptyline HCl [Elavil] 100 mg PO QHS 03/11/13 Diltiazem CD [Cardizem CD] 120 mg PO DAILY 03/11/13 Lisinopril/Hydrochlorothiazide [Zestoretic 11/21.5 Tablet] 1 tab PO DAILY 06/30/15 Atorvastatin Calcium [Lipitor] 40 mg PO QHS PRN 01/19/17 Paroxetine [Paxil] 40 mg PO DAILY 01/19/17 albuterol sulfate 2.5 mg/3 mL (0.083 %) solution for nebulization 2.5 mg INHALATION Q4H PRN #180 vial 04/14/17 Cyclobenzaprine HCl 10 mg PO DAILY PRN 01/08/19 Fluticasone/Umeclidin/Vilanter [Trelegy Ellipta] 1 inh INHALATION DAILY 01/08/19 Fluticasone/Vilanterol [Breo Ellipta 200-25 Mcg INH] 1 dose INHALATION DAILY 01/08/19 Ondansetron HCl [Zofran] 4 mg PO Q4H PRN 01/08/19 Albuterol Inhaler [Ventolin Hfa (SP)] 1 puff INHALATION Q4H PRN PRN 01/09/19 Clonazepam 1 mg PO DAILY PRN 01/09/19 Docusate Sodium 100 mg PO BID 01/09/19 Metoprolol Succinate [Toprol Xl] 25 mg PO DAILY 01/09/19 Omeprazole [Prilosec] 40 mg PO BID 01/09/19 Sucralfate [Carafate] 1 gm PO 4X/DAY 01/09/19 Primary Care Physician: Remi Veras MD [Primary Care Provider] - Disposition: Acute [facility] - [facility] Minutes spent on discharge:: 45 Patient Condition:: Guarded Medical Necessity - Tobacco Use Smoking Status: Current every day smoker Tobacco Use: Cigarettes Meaningful Use Info Meaningful Use Diagnoses (Choose all that apply): None applicable Code Visit Inpatient E&M: 36970 Disch Hosp
--- NOTE | 2019-01-09 11:50 | NURSING ---
Called report to Purnima VELIZ at [facility]
[2019-01-11 10:32] LABS: Vitamin B12 418 pg/mL (211-911)
== END 2019-01-09 13:10 | disposition short-term general hospital (02) | DRG 71 ==
LOC: ED 21:13 → PCU 23:30
PROVIDERS: Admitting Provider Hospitalist; Emergency Provider Emergency Medicine; Family Provider Family Medicine; PCP Family Medicine; Referring Provider Hospitalist; Visit Provider Internal Medicine
DX: G93.40 Encephalopathy, unspecified (principal); N17.9 Acute kidney failure, unspecified; J96.11 Chronic respiratory failure with hypoxia; Q79.60 Ehlers-Danlos syndrome, unspecified; E86.0 Dehydration; J44.9 Chronic obstructive pulmonary disease, unspecified; G47.33 Obstructive sleep apnea (adult) (pediatric); F17.210 Nicotine dependence, cigarettes, uncomplicated; M70.60 Trochanteric bursitis, unspecified hip; I10 Essential (primary) hypertension; K70.30 Alcoholic cirrhosis of liver without ascites; I73.9 Peripheral vascular disease, unspecified; Z96.649 Presence of unspecified artificial hip joint; Z82.5 Family history of asthma and other chronic lower respiratory diseases; F10.20 Alcohol dependence, uncomplicated
CPT/HCPCS: 36415; 36600; 70450; 70551; 71046; 80048; 80061; 80076; 80307; 80320; 81001; 82140; 82607; 82803; 83605; 83690; 83735; 84443; 84484; 85025; 85610; 85730; 93005; 94640; 97162; 97166; 99251; 99285; J7030; A4216; G0463; G0480